=== PATIENT | male | born 1960 | race Caucasian/White ===

== ENCOUNTER 2024-08-19 22:49 | Observation (INO) | payer OTHER ==
--- NOTE | 2024-08-19 23:21 | XRAY ---
CLINICAL HISTORY: stroke COMPARISON: None. TECHNIQUE: Axial noncontrast CT scan of the brain was performed from the skull base to the high parietal region. One of the following dose reduction techniques were utilized for this exam: Automated exposure control, adjustment of the mA and/or kV according to patient size, use of iterative reconstruction. FINDINGS: There are tiny ill-defined iso-to hypodense areas noted in the subcortical and periventricular white matter bilaterally, suggestive of microvascular ischemic changes. The ventricular system, cortical sulci and basal cisterns are prominent consistent with senile changes. The visualized brain parenchyma shows normal appearance. Solis-white matter differentiation is maintained. No midline shifts or deformity. No intracerebral or extra axial hematoma. Normal CT appearance of the posterior fossa structures namely the cerebellar hemispheres, brainstem and cerebellar peduncles. The cerebello-pontine angles are clear. The osseous structures in the skull base are unremarkable. Right-sided nasal septal deviation. The scanned paranasal sinuses are clear. Bilateral mastoid air cells appear unremarkable. IMPRESSION: 1. No established acute infarction seen at present study. Early changes of stroke may not be detected on a CT scan. If strong clinical suspicion of stroke then suggest MRI with diffusion-weighted imaging. 2. Mild chronic microvascular ischemic changes and cortical atrophy, age-appropriate. The report was ready at 10:11 PM VP PACK[employer], 08/19/2024 and the call was completed at 10:13 PM VP P[employer]AGING 08/19/2024, at and Sadie (Nurse) was informed regarding the negative stroke results. Electronically Signed by: Mary Mott MD. (08/19/2024 23:18:20 EDT)
--- NOTE | 2024-08-19 23:26 | ERPHSYRPT ---
- History of Present Illness Time Seen by Provider: 08/19/24 22:55 Source: patient Exam Limitations: no limitations Patient Subjective Stated Complaint: c/o falls and altered mental status Triage Nursing Assessment: Patient brought into ED by ambulance with c/o falls and altered mental status. patient was found on floor in his home at 2130 by komal joi. fall was unwitnessed. patient states he doesn't remember falling. family told EMS that he hasn't been acting like himself the past few days and that he has fallen multiple times. Patient is a diabetic, blood sugar was 185 per our glucometer, patient was able to stand and pivot with an assist of 1, patient is alert and oriented to place and name, skin w/n/d, clubbing of fingers present, cap refil 4 seconds, doesn't oxygen at home, patient doesn't appear to be in any distress at this time. Physician History: Patient is a 63-year-old male history of diabetes, high blood pressure hypertension presents to our ED via EMS for evaluation. Per EMS report patient is altered. Family reports that his behavior is not normal. Patient has been falling more frequently as well. Patient denies pain. No chest pain or shortness of breath. No nausea vomiting or diaphoresis. Symptoms are constant. Symptoms are moderate in intensity. No specific worsening or improving factors. Patient voices no other complaints or concerns at this time. Portions of this note were created with voice recognition technology. There may be grammatical, spelling, punctuation or sound alike errors Timing/Duration: today Severity: moderate Modifying Factors: Improves With: nothing Associated Symptoms: denies symptoms Allergies/Adverse Reactions: No Known Drug Allergies Allergy (Verified 08/19/24 23:24) Home Medications: Atorvastatin Calcium 40 mg PO DAILY 08/19/24 [History] Baclofen 10 mg [Lioresal 10 mg] 10 mg PO TID 08/19/24 [History] Dapagliflozin Propanediol [Farxiga] 10 mg PO DAILY 08/19/24 [History] Doxycycline Monohydrate 100 mg PO BID 08/19/24 [History] Insulin Glargine,Hum.rec.anlog [Lantus] 25 units SQ DAILY 08/19/24 [History] Lisinopril/Hydrochlorothiazide [Zestoretic 20-25 mg Tablet] 1 tab PO DAILY 08/19/24 [History] Metformin HCl [Metformin ER Osmotic] 1,000 mg PO BID 08/19/24 [History] Travel Risk - International Travel Have you traveled outside of the country in past 3 weeks: No - Emerging Infectious Disease Are you exhibiting symptoms associated with any current EIDs: No - Review of Systems Constitutional: No Symptoms, No Fever, No Chills Eyes: No Symptoms Ears, Nose, & Throat: No Symptoms Respiratory: No Symptoms, No Cough, No Dyspnea Cardiac: No Symptoms, No Chest Pain, No Edema, No Syncope Abdominal/Gastrointestinal: No Symptoms, No Abdominal Pain, No Nausea, No Vomiting, No Diarrhea Genitourinary Symptoms: No Symptoms, No Dysuria Musculoskeletal: No Symptoms, No Back Pain, No Neck Pain Skin: No Symptoms, No Rash Neurological: No Symptoms, No Dizziness, No Focal Weakness, No Sensory Changes Psychological: No Symptoms Endocrine: No Symptoms Hematologic/Lymphatic: No Symptoms Immunological/Allergic: No Symptoms All Other Systems: Reviewed and Negative - Past Medical History Pertinent Past Medical History: (poor historian) - Past Surgical History Past Surgical History: No (unknown) - Social History Smoking Status: Current every day smoker Exposure to second hand smoke: No Drug Use: none - Social Determinants of Health Will the patient participate in the screening: Declined to provide - Nursing Vital Signs Nursing Vital Signs: Initial Vital Signs Temperature 96.5 F 08/19/24 22:53 Pulse Rate 71 08/19/24 22:53 Respiratory Rate 17 08/19/24 22:53 Blood Pressure 107/81 08/19/24 22:53 O2 Sat by Pulse Oximetry 96 08/19/24 22:53 Pain Scale Pain Intensity 0 - Physical Exam General Appearance: no apparent distress, alert Eye Exam: PERRL/EOMI, eyes nml inspection Ears, Nose, Throat Exam: normal ENT inspection, TMs normal, pharynx normal, moist mucous membranes Neck Exam: normal inspection, non-tender, supple, full range of motion Respiratory Exam: normal breath sounds, lungs clear, No respiratory distress Cardiovascular Exam: regular rate/rhythm, normal heart sounds, normal peripheral pulses Gastrointestinal/Abdomen Exam: soft, normal bowel sounds, No tenderness, No mass Back Exam: normal inspection, normal range of motion, No CVA tenderness, No vertebral tenderness Extremity Exam: normal inspection, normal range of motion, pelvis stable Neurologic Exam: alert, cooperative, normal mood/affect, sensation nml, confusion, other (Ataxic gait pattern), No motor deficits Skin Exam: normal color, warm, dry, No rash Lymphatic Exam: No adenopathy SpO2 Interpretation: normal SpO2: 96 O2 Delivery: Room Air - Course Nursing assessment & vital signs reviewed: Yes EKG Interpreted by Me: RATE (71), Sinus Rhythm, NORMAL AXIS, prolonged QT interval, NORMAL QRS, Other (Diffuse T wave abnormality/ischemia) - CT Exams Head CT Interpretation: Tele-radiologist Report (No acute intracranial pathology) Ordered Tests: Active Orders 24 hr Category Date Time Status Senior Health Educator STAT Care 08/19/24 23:20 Active EKG-ER Only STAT Care 08/19/24 23:19 Active IV Insertion STAT Care 08/19/24 23:19 Active Pulse Oximetry (ED) STAT Care 08/19/24 23:19 Active CHEST 1 VIEW (PORTABLE) Stat Exams 08/19/24 23:20 Taken HEAD WITHOUT CONTRAST [CT] Stat Exams 08/19/24 22:50 Completed CBC W DIFF Stat Lab 08/19/24 23:35 Completed CMP Stat Lab 08/19/24 23:35 Completed CULTURE,URINE Stat Lab 08/20/24 02:19 Received Lactic Acid Stat Lab 08/19/24 23:30 Completed MAGNESIUM Stat Lab 08/19/24 23:35 Completed NT PRO BNPII Stat Lab 08/19/24 23:00 Completed TROPONIN Q4H Lab 08/19/24 23:35 Completed TROPONIN Q4H Lab 08/20/24 02:14 Completed TROPONIN Q4H Lab 08/20/24 07:30 Ordered TSH [TSH, 3RD Generation] Stat Lab 08/19/24 23:35 Completed UA W/RFX UR CULTURE Stat Lab 08/20/24 02:19 Completed Urine Triage Profile Stat Lab 08/20/24 02:19 Completed Transfer Order Routine Transfer 08/20/24 Ordered Medication Summary Discontinued Medications Generic Name Dose Route Start Last Admin Trade Name Freq PRN Reason Stop Dose Admin Aspirin 324 mg 08/20/24 01:02 08/20/24 01:07 Aspirin 81 Mg Tab.Chew PO 08/20/24 01:03 324 mg STAT ONE Administration Aspirin Confirm 08/20/24 01:06 Aspirin 81 Mg Tab.Chew Administered 08/20/24 01:07 Dose 324 mg .ROUTE .STK-MED ONE Sodium Chloride 1,000 mls @ 999 mls/hr 08/20/24 00:30 08/20/24 01:32 Sodium Chloride 0.9% 1000 Ml IV 08/20/24 01:30 Infused .Q1H1M STA Infusion Sodium Chloride Confirm 08/20/24 00:30 Sodium Chloride 0.9% 1000 Ml Administered 08/20/24 00:31 Dose 1,000 mls @ ud .ROUTE .STK-MED ONE Lab/Rad Data: Laboratory Result Diagrams 08/19/24 23:35 08/19/24 23:35 Laboratory Results 08/20/24 08/20/24 08/20/24 Range/Units 02:19 02:19 02:14 WBC (4.23-9.07) x10^3/uL RBC (4.63-6.08) x10^6/uL Hgb (13.7-17.5) g/dL Hct (40.1-51.0) % MCV (79.0-92.2) fL MCH (25.7-32.2) pg MCHC (32.3-36.5) g/dL RDW (11.6-14.4) % Plt Count (163-337) x10^3/uL MPV (9.4-12.4) fL Gran % (34.0-67.9) % Immature Gran % (Auto) (0.001-0.429) % Nucleat RBC Rel Count (0.00-0.2) % Eos # (Auto) (0.04-0.54) x10^3/uL Immature Gran # (Auto) (0.001-0.031) x10^3u/L Absolute Lymphs (auto) (1.32-3.57) x10^3/uL Absolute Monos (auto) (0.30-0.82) x10^3/uL Absolute Nucleated RBC (0.00-0.012) x10^3u/L Lymphocytes % (21.8-53.1) % Monocytes % (5.3-12.2) % Eosinophils % (0.8-7.0) % Basophils % (0.2-1.2) % Absolute Granulocytes (1.78-5.38) x10^3/uL Basophils # (0.01-0.08) x10^3/uL Sodium (135-145) mmol/L Potassium (3.5-5.1) mmol/L Chloride (98-107) mmol/L Carbon Dioxide (22-30) mmol/L Anion Gap (5-15) MEQ/L BUN (9-20) mg/dL Creatinine (0.66-1.25) mg/dL Estimated GFR ML/MIN Glucose (74-106) mg/dL Lactic Acid (0.4-2.0) Calcium (8.4-10.2) mg/dL Magnesium (1.6-2.3) mg/dL Total Bilirubin (0.2-1.3) mg/dL AST (17-59) U/L ALT (0-50) U/L Alkaline Phosphatase (38-126) U/L Ammonia (9-30) umol/L Troponin I < 0.012 (0.000-0.033) ng/mL NT-Pro-B Natriuret Pep (<300) pg/mL Serum Total Protein (6.3-8.2) g/dL Albumin (3.5-5.0) g/dL TSH 3rd Generation (0.470-4.680) mIU/L Urine Color Yellow (Yellow) Urine Appearance Clear (Clear) Urine pH 5.0 (4.6-8.0) Ur Specific [place] 1.025 (1.005-1.030) Urine Protein 30 (Negative) Urine Glucose (UA) >=1000 A (Negative) mg/dL Urine Ketones Trace A (Negative) Urine Blood Trace (Negative) Urine Nitrite Negative (Negative) Urine Bilirubin Negative (Negative) Urine Urobilinogen 1.0 A (0.2) mg/dL Ur Leukocyte Esterase Negative (Negative) U Hyaline Cast (Auto) 3-5 A (0-2) /LPF Urine Microscopic RBC 3-5 (0-5) /HPF Urine Microscopic WBC 0-2 (0-5) /HPF Ur Epithelial Cells None Seen (None Seen) /HPF Urine Bacteria None Seen (None Seen) /HPF Urine Culture Reflexed YES (NO) Urine Opiates Level NEGATIVE (NEGATIVE) Ur Methadone NEGATIVE (NEGATIVE) Urine Barbiturates NEGATIVE (NEGATIVE) Ur Phencyclidine (PCP) NEGATIVE (NEGATIVE) Urine Amphetamine NEGATIVE (NEGATIVE) U Benzodiazepine Level NEGATIVE (NEGATIVE) Urine Cocaine NEGATIVE (NEGATIVE) Urine Marijuana (THC) NEGATIVE (NEGATIVE) 08/19/24 08/19/24 08/19/24 Range/Units 23:35 23:35 23:35 WBC (4.23-9.07) x10^3/uL RBC (4.63-6.08) x10^6/uL Hgb (13.7-17.5) g/dL Hct (40.1-51.0) % MCV (79.0-92.2) fL MCH (25.7-32.2) pg MCHC (32.3-36.5) g/dL RDW (11.6-14.4) % Plt Count (163-337) x10^3/uL MPV (9.4-12.4) fL Gran % (34.0-67.9) % Immature Gran % (Auto) (0.001-0.429) % Nucleat RBC Rel Count (0.00-0.2) % Eos # (Auto) (0.04-0.54) x10^3/uL Immature Gran # (Auto) (0.001-0.031) x10^3u/L Absolute Lymphs (auto) (1.32-3.57) x10^3/uL Absolute Monos (auto) (0.30-0.82) x10^3/uL Absolute Nucleated RBC (0.00-0.012) x10^3u/L Lymphocytes % (21.8-53.1) % Monocytes % (5.3-12.2) % Eosinophils % (0.8-7.0) % Basophils % (0.2-1.2) % Absolute Granulocytes (1.78-5.38) x10^3/uL Basophils # (0.01-0.08) x10^3/uL Sodium (135-145) mmol/L Potassium (3.5-5.1) mmol/L Chloride (98-107) mmol/L Carbon Dioxide (22-30) mmol/L Anion Gap (5-15) MEQ/L BUN (9-20) mg/dL Creatinine (0.66-1.25) mg/dL Estimated GFR ML/MIN Glucose (74-106) mg/dL Lactic Acid (0.4-2.0) Calcium (8.4-10.2) mg/dL Magnesium (1.6-2.3) mg/dL Total Bilirubin (0.2-1.3) mg/dL AST (17-59) U/L ALT (0-50) U/L Alkaline Phosphatase (38-126) U/L Ammonia < 9 L (9-30) umol/L Troponin I < 0.012 (0.000-0.033) ng/mL NT-Pro-B Natriuret Pep (<300) pg/mL Serum Total Protein (6.3-8.2) g/dL Albumin (3.5-5.0) g/dL TSH 3rd Generation 1.847 (0.470-4.680) mIU/L Urine Color (Yellow) Urine Appearance (Clear) Urine pH (4.6-8.0) Ur Specific [place] (1.005-1.030) Urine Protein (Negative) Urine Glucose (UA) (Negative) mg/dL Urine Ketones (Negative) Urine Blood (Negative) Urine Nitrite (Negative) Urine Bilirubin (Negative) Urine Urobilinogen (0.2) mg/dL Ur Leukocyte Esterase (Negative) U Hyaline Cast (Auto) (0-2) /LPF Urine Microscopic RBC (0-5) /HPF Urine Microscopic WBC (0-5) /HPF Ur Epithelial Cells (None Seen) /HPF Urine Bacteria (None Seen) /HPF Urine Culture Reflexed (NO) Urine Opiates Level (NEGATIVE) Ur Methadone (NEGATIVE) Urine Barbiturates (NEGATIVE) Ur Phencyclidine (PCP) (NEGATIVE) Urine Amphetamine (NEGATIVE) U Benzodiazepine Level (NEGATIVE) Urine Cocaine (NEGATIVE) Urine Marijuana (THC) (NEGATIVE) 08/19/24 08/19/24 08/19/24 Range/Units 23:35 23:35 23:30 WBC 13.5 H (4.23-9.07) x10^3/uL RBC 5.73 (4.63-6.08) x10^6/uL Hgb 16.7 (13.7-17.5) g/dL Hct 50.8 (40.1-51.0) % MCV 88.7 (79.0-92.2) fL MCH 29.1 (25.7-32.2) pg MCHC 32.9 (32.3-36.5) g/dL RDW 12.7 (11.6-14.4) % Plt Count 274 (163-337) x10^3/uL MPV 10.8 (9.4-12.4) fL Gran % 71.1 H (34.0-67.9) % Immature Gran % (Auto) 0.4 (0.001-0.429) % Nucleat RBC Rel Count 0.0 (0.00-0.2) % Eos # (Auto) 0.04 (0.04-0.54) x10^3/uL Immature Gran # (Auto) 0.06 H (0.001-0.031) x10^3u/L Absolute Lymphs (auto) 2.64 (1.32-3.57) x10^3/uL Absolute Monos (auto) 1.12 H (0.30-0.82) x10^3/uL Absolute Nucleated RBC 0.00 (0.00-0.012) x10^3u/L Lymphocytes % 19.6 L (21.8-53.1) % Monocytes % 8.3 (5.3-12.2) % Eosinophils % 0.3 L (0.8-7.0) % Basophils % 0.3 (0.2-1.2) % Absolute Granulocytes 9.59 H (1.78-5.38) x10^3/uL Basophils # 0.04 (0.01-0.08) x10^3/uL Sodium 136 (135-145) mmol/L Potassium 3.7 (3.5-5.1) mmol/L Chloride 93 L (98-107) mmol/L Carbon Dioxide 28 (22-30) mmol/L Anion Gap 18.6 H (5-15) MEQ/L BUN 69 H (9-20) mg/dL Creatinine 1.40 H (0.66-1.25) mg/dL Estimated GFR 56.5 ML/MIN Glucose 182 H (74-106) mg/dL Lactic Acid 1.5 (0.4-2.0) Calcium 8.8 (8.4-10.2) mg/dL Magnesium 3.2 H (1.6-2.3) mg/dL Total Bilirubin 0.70 (0.2-1.3) mg/dL AST 23 (17-59) U/L ALT 16 (0-50) U/L Alkaline Phosphatase 144 H (38-126) U/L Ammonia (9-30) umol/L Troponin I (0.000-0.033) ng/mL NT-Pro-B Natriuret Pep (<300) pg/mL Serum Total Protein 6.7 (6.3-8.2) g/dL Albumin 3.9 (3.5-5.0) g/dL TSH 3rd Generation (0.470-4.680) mIU/L Urine Color (Yellow) Urine Appearance (Clear) Urine pH (4.6-8.0) Ur Specific [place] (1.005-1.030) Urine Protein (Negative) Urine Glucose (UA) (Negative) mg/dL Urine Ketones (Negative) Urine Blood (Negative) Urine Nitrite (Negative) Urine Bilirubin (Negative) Urine Urobilinogen (0.2) mg/dL Ur Leukocyte Esterase (Negative) U Hyaline Cast (Auto) (0-2) /LPF Urine Microscopic RBC (0-5) /HPF Urine Microscopic WBC (0-5) /HPF Ur Epithelial Cells (None Seen) /HPF Urine Bacteria (None Seen) /HPF Urine Culture Reflexed (NO) Urine Opiates Level (NEGATIVE) Ur Methadone (NEGATIVE) Urine Barbiturates (NEGATIVE) Ur Phencyclidine (PCP) (NEGATIVE) Urine Amphetamine (NEGATIVE) U Benzodiazepine Level (NEGATIVE) Urine Cocaine (NEGATIVE) Urine Marijuana (THC) (NEGATIVE) 08/19/24 Range/Units 23:00 WBC (4.23-9.07) x10^3/uL RBC (4.63-6.08) x10^6/uL Hgb (13.7-17.5) g/dL Hct (40.1-51.0) % MCV (79.0-92.2) fL MCH (25.7-32.2) pg MCHC (32.3-36.5) g/dL RDW (11.6-14.4) % Plt Count (163-337) x10^3/uL MPV (9.4-12.4) fL Gran % (34.0-67.9) % Immature Gran % (Auto) (0.001-0.429) % Nucleat RBC Rel Count (0.00-0.2) % Eos # (Auto) (0.04-0.54) x10^3/uL Immature Gran # (Auto) (0.001-0.031) x10^3u/L Absolute Lymphs (auto) (1.32-3.57) x10^3/uL Absolute Monos (auto) (0.30-0.82) x10^3/uL Absolute Nucleated RBC (0.00-0.012) x10^3u/L Lymphocytes % (21.8-53.1) % Monocytes % (5.3-12.2) % Eosinophils % (0.8-7.0) % Basophils % (0.2-1.2) % Absolute Granulocytes (1.78-5.38) x10^3/uL Basophils # (0.01-0.08) x10^3/uL Sodium (135-145) mmol/L Potassium (3.5-5.1) mmol/L Chloride (98-107) mmol/L Carbon Dioxide (22-30) mmol/L Anion Gap (5-15) MEQ/L BUN (9-20) mg/dL Creatinine (0.66-1.25) mg/dL Estimated GFR ML/MIN Glucose (74-106) mg/dL Lactic Acid (0.4-2.0) Calcium (8.4-10.2) mg/dL Magnesium (1.6-2.3) mg/dL Total Bilirubin (0.2-1.3) mg/dL AST (17-59) U/L ALT (0-50) U/L Alkaline Phosphatase (38-126) U/L Ammonia (9-30) umol/L Troponin I (0.000-0.033) ng/mL NT-Pro-B Natriuret Pep 31.5 (<300) pg/mL Serum Total Protein (6.3-8.2) g/dL Albumin (3.5-5.0) g/dL TSH 3rd Generation (0.470-4.680) mIU/L Urine Color (Yellow) Urine Appearance (Clear) Urine pH (4.6-8.0) Ur Specific [place] (1.005-1.030) Urine Protein (Negative) Urine Glucose (UA) (Negative) mg/dL Urine Ketones (Negative) Urine Blood (Negative) Urine Nitrite (Negative) Urine Bilirubin (Negative) Urine Urobilinogen (0.2) mg/dL Ur Leukocyte Esterase (Negative) U Hyaline Cast (Auto) (0-2) /LPF Urine Microscopic RBC (0-5) /HPF Urine Microscopic WBC (0-5) /HPF Ur Epithelial Cells (None Seen) /HPF Urine Bacteria (None Seen) /HPF Urine Culture Reflexed (NO) Urine Opiates Level (NEGATIVE) Ur Methadone (NEGATIVE) Urine Barbiturates (NEGATIVE) Ur Phencyclidine (PCP) (NEGATIVE) Urine Amphetamine (NEGATIVE) U Benzodiazepine Level (NEGATIVE) Urine Cocaine (NEGATIVE) Urine Marijuana (THC) (NEGATIVE) - Progress Progress: improved Progress Note: 08/20/24 02:45 63-year-old male diabetic presents to our ED via EMS for evaluation of falls and unusual behavior. Physical exam essentially nonremarkable. EKG shows T wave abnormalities. Laboratory workup essentially nonremarkable. CT head shows chronic ischemic changes. No acute findings. Troponin negative x 2. UA negative for UTI. Urine toxicology negative. We ambulated patient in our ED. Patient had an antalgic gait pattern. Teleneurology consulted. They advise hospitalization for MRI. Case discussed with hospitalist Dr. Jama who accepts admission to observation at 2:50 AM. Plan of care discussed with patient. He agrees to admission at [facility] for further evaluation and treatment. EKG shows T wave inversions inferior and laterally. Patient has no chest pain. Troponin negative x 2. There are no old EKGs to compare. Portions of this note were created with voice recognition technology. There may be grammatical, spelling, punctuation or sound alike errors Complexity of problem addressed is moderate acute complicated. No critical care time. Complexity of data reviewed and analyzed is extensive.. Test ordered test reviewed results analyzed and correlated clinically. Risk of complication and or risk of morbidity/mortality of patient management is high. Patient requires hospitalization for further evaluation and treatment. Vital stable. Time spent admit patient is approximately 20 minutes. Plan of care established for shared decision making. No social determinants of health present to impede follow-up. Portions of this note were created with voice recognition technology. There may be grammatical, spelling, punctuation or sound alike errors 08/20/24 02:47 08/20/24 02:59 Counseled pt/family regarding: lab results, diagnosis, rad results - Departure Departure Disposition: Observation Clinical Impression: Acute renal injury, Confusion, Dehydration, Falls, Abnormal EKG Condition: Stable Critical Care Time: No Referrals: ANNA MARIE IZAGUIRRE MD [Primary Care Provider] - Follow up/PCP as directed
[2024-08-19 23:38] LABS: Absolute Neutrophil Ct (ANC) 9.59 x10^3/uL (1.78-5.38); BASOPHIL % 0.3 % (0.2-1.2); Basophil (Absolute #) 0.04 x10^3/uL (0.01-0.08); Eosinophil % 0.3 % (0.8-7.0); Eosinophil (Absolute #) 0.04 x10^3/uL (0.04-0.54); Hematocrit 50.8 % (40.1-51.0); Hemoglobin 16.7 g/dL (13.7-17.5); IMMATURE GRAN # 0.06 x10^3u/L (0.001-0.031); IMMATURE GRAN % 0.4 % (0.001-0.429); Lymphocyte (Absolute #) 2.64 x10^3/uL (1.32-3.57); Lymphocytes % 19.6 % (21.8-53.1); Mean Cell Volume 88.7 fL (79.0-92.2); Mean Corpuscular Hemoglobin 29.1 pg (25.7-32.2); Mean Corpuscular Hgb Concent. 32.9 g/dL (32.3-36.5); Mean Platelet Volume 10.8 fL (9.4-12.4); Monocyte (Absolute #) 1.12 x10^3/uL (0.30-0.82); Monocytes % 8.3 % (5.3-12.2); Neutrophil % 71.1 % (34.0-67.9); Platelet Count 274 x10^3/uL (163-337); Red Blood Count 5.73 x10^6/uL (4.63-6.08); Red Cell Distribution Width 12.7 % (11.6-14.4); White Blood Count 13.5 x10^3/uL (4.23-9.07)
[2024-08-19 23:52] LABS: ALBUMIN 3.9 g/dL (3.5-5.0); ANION GAP 18.6 MEQ/L (5-15); BILIRUBIN,TOTAL 0.7 mg/dL (0.2-1.3); Calcium 8.8 mg/dL (8.4-10.2); Creatinine 1 1.4 mg/dL (0.66-1.25); EST GLOMERULAR FILTRATION RATE 56.5 ML/MIN; MAGNESIUM 3.2 mg/dL (1.6-2.3); Potassium 3.7 mmol/L (3.5-5.1); Total Protein 6.7 g/dL (6.3-8.2)
[2024-08-20] MEDS ORDERED: Sodium Chloride 0.9% 1000 ML 1,000 ML ONE (00:30)
[2024-08-20] MEDS: Sodium Chloride 0.9% 1000 ML 1,000 ML IV STA (00:32)
[2024-08-20] MEDS ORDERED: BABY ASPIRIN 81 MG CHEW ONE (01:06)
[2024-08-20] MEDS: BABY ASPIRIN 81 MG CHEW PO ONE (01:07)
--- NOTE | 2024-08-20 01:41 | PCM.CONS ---
History of Present Illness - Neuro Consultation ED Arrival Date & Time: 08/19/24 22:49 Providers: Attending Provider: ED Provider: VINOD GOULD Consulting Provider: CAT CURRY MD cc:: The requesting physician will be sent a copy of the consult. - History of Present Illness HPI: The patient is a 63M Review of Systems - Review of Systems Review of Systems (Narrative): Pertinent positive and negative findings as per HPI. All other systems negative. - Past Medical History Past Medical History: (poor historian) - Past Surgical History Past Surgical History: No (unknown) - Social History Smoking Status: Current every day smoker Exposure to second hand smoke: No Alcohol: Occasionally Drug Use: none - Social Determinants of Health Will the patient participate in the screening: Declined to provide Physical Exam - Vital Signs Vital Signs: Vital Signs - 24 hr 08/19/24 08/19/24 08/19/24 22:53 23:04 23:27 Temperature 96.5 F Pulse Rate 71 71 Respiratory 17 30 H Rate Blood Pressure 107/81 Blood Pressure 107/81 [left] O2 Sat by Pulse 96 95 95 Oximetry 08/19/24 08/19/24 08/20/24 23:30 23:49 00:00 Temperature Pulse Rate 72 72 70 Respiratory 28 H 22 20 Rate Blood Pressure 100/64 100/61 Blood Pressure 100/64 [left] O2 Sat by Pulse 92 L 94 L 97 Oximetry 08/20/24 08/20/24 08/20/24 00:31 00:37 01:01 Temperature Pulse Rate 85 63 60 Respiratory 12 19 15 Rate Blood Pressure 108/59 107/64 116/60 Blood Pressure [left] O2 Sat by Pulse 100 95 95 Oximetry 08/20/24 01:12 Temperature Pulse Rate Respiratory Rate Blood Pressure Blood Pressure [left] O2 Sat by Pulse 96 Oximetry Results - Labs Lab/Micro Results: Lab Results-Last 24 Hours 08/19/24 08/19/24 08/19/24 Range/Units 23:00 23:30 23:35 WBC 13.5 H (4.23-9.07) x10^3/uL RBC 5.73 (4.63-6.08) x10^6/uL Hgb 16.7 (13.7-17.5) g/dL Hct 50.8 (40.1-51.0) % MCV 88.7 (79.0-92.2) fL MCH 29.1 (25.7-32.2) pg MCHC 32.9 (32.3-36.5) g/dL RDW 12.7 (11.6-14.4) % Plt Count 274 (163-337) x10^3/uL MPV 10.8 (9.4-12.4) fL Gran % 71.1 H (34.0-67.9) % Immature Gran % (Auto) 0.4 (0.001-0.429) % Nucleat RBC Rel Count 0.0 (0.00-0.2) % Eos # (Auto) 0.04 (0.04-0.54) x10^3/uL Immature Gran # (Auto) 0.06 H (0.001-0.031) x10^3u/L Absolute Lymphs (auto) 2.64 (1.32-3.57) x10^3/uL Absolute Monos (auto) 1.12 H (0.30-0.82) x10^3/uL Absolute Nucleated RBC 0.00 (0.00-0.012) x10^3u/L Lymphocytes % 19.6 L (21.8-53.1) % Monocytes % 8.3 (5.3-12.2) % Eosinophils % 0.3 L (0.8-7.0) % Basophils % 0.3 (0.2-1.2) % Absolute Granulocytes 9.59 H (1.78-5.38) x10^3/uL Basophils # 0.04 (0.01-0.08) x10^3/uL Sodium (135-145) mmol/L Potassium (3.5-5.1) mmol/L Chloride (98-107) mmol/L Carbon Dioxide (22-30) mmol/L Anion Gap (5-15) MEQ/L BUN (9-20) mg/dL Creatinine (0.66-1.25) mg/dL Estimated GFR ML/MIN Glucose (74-106) mg/dL Lactic Acid 1.5 (0.4-2.0) Calcium (8.4-10.2) mg/dL Magnesium (1.6-2.3) mg/dL Total Bilirubin (0.2-1.3) mg/dL AST (17-59) U/L ALT (0-50) U/L Alkaline Phosphatase (38-126) U/L Ammonia (9-30) umol/L Troponin I (0.000-0.033) ng/mL NT-Pro-B Natriuret Pep 31.5 (<300) pg/mL Serum Total Protein (6.3-8.2) g/dL Albumin (3.5-5.0) g/dL TSH 3rd Generation (0.470-4.680) mIU/L 08/19/24 08/19/24 08/19/24 Range/Units 23:35 23:35 23:35 WBC (4.23-9.07) x10^3/uL RBC (4.63-6.08) x10^6/uL Hgb (13.7-17.5) g/dL Hct (40.1-51.0) % MCV (79.0-92.2) fL MCH (25.7-32.2) pg MCHC (32.3-36.5) g/dL RDW (11.6-14.4) % Plt Count (163-337) x10^3/uL MPV (9.4-12.4) fL Gran % (34.0-67.9) % Immature Gran % (Auto) (0.001-0.429) % Nucleat RBC Rel Count (0.00-0.2) % Eos # (Auto) (0.04-0.54) x10^3/uL Immature Gran # (Auto) (0.001-0.031) x10^3u/L Absolute Lymphs (auto) (1.32-3.57) x10^3/uL Absolute Monos (auto) (0.30-0.82) x10^3/uL Absolute Nucleated RBC (0.00-0.012) x10^3u/L Lymphocytes % (21.8-53.1) % Monocytes % (5.3-12.2) % Eosinophils % (0.8-7.0) % Basophils % (0.2-1.2) % Absolute Granulocytes (1.78-5.38) x10^3/uL Basophils # (0.01-0.08) x10^3/uL Sodium 136 (135-145) mmol/L Potassium 3.7 (3.5-5.1) mmol/L Chloride 93 L (98-107) mmol/L Carbon Dioxide 28 (22-30) mmol/L Anion Gap 18.6 H (5-15) MEQ/L BUN 69 H (9-20) mg/dL Creatinine 1.40 H (0.66-1.25) mg/dL Estimated GFR 56.5 ML/MIN Glucose 182 H (74-106) mg/dL Lactic Acid (0.4-2.0) Calcium 8.8 (8.4-10.2) mg/dL Magnesium 3.2 H (1.6-2.3) mg/dL Total Bilirubin 0.70 (0.2-1.3) mg/dL AST 23 (17-59) U/L ALT 16 (0-50) U/L Alkaline Phosphatase 144 H (38-126) U/L Ammonia (9-30) umol/L Troponin I < 0.012 (0.000-0.033) ng/mL NT-Pro-B Natriuret Pep (<300) pg/mL Serum Total Protein 6.7 (6.3-8.2) g/dL Albumin 3.9 (3.5-5.0) g/dL TSH 3rd Generation 1.847 (0.470-4.680) mIU/L 08/19/24 Range/Units 23:35 WBC (4.23-9.07) x10^3/uL RBC (4.63-6.08) x10^6/uL Hgb (13.7-17.5) g/dL Hct (40.1-51.0) % MCV (79.0-92.2) fL MCH (25.7-32.2) pg MCHC (32.3-36.5) g/dL RDW (11.6-14.4) % Plt Count (163-337) x10^3/uL MPV (9.4-12.4) fL Gran % (34.0-67.9) % Immature Gran % (Auto) (0.001-0.429) % Nucleat RBC Rel Count (0.00-0.2) % Eos # (Auto) (0.04-0.54) x10^3/uL Immature Gran # (Auto) (0.001-0.031) x10^3u/L Absolute Lymphs (auto) (1.32-3.57) x10^3/uL Absolute Monos (auto) (0.30-0.82) x10^3/uL Absolute Nucleated RBC (0.00-0.012) x10^3u/L Lymphocytes % (21.8-53.1) % Monocytes % (5.3-12.2) % Eosinophils % (0.8-7.0) % Basophils % (0.2-1.2) % Absolute Granulocytes (1.78-5.38) x10^3/uL Basophils # (0.01-0.08) x10^3/uL Sodium (135-145) mmol/L Potassium (3.5-5.1) mmol/L Chloride (98-107) mmol/L Carbon Dioxide (22-30) mmol/L Anion Gap (5-15) MEQ/L BUN (9-20) mg/dL Creatinine (0.66-1.25) mg/dL Estimated GFR ML/MIN Glucose (74-106) mg/dL Lactic Acid (0.4-2.0) Calcium (8.4-10.2) mg/dL Magnesium (1.6-2.3) mg/dL Total Bilirubin (0.2-1.3) mg/dL AST (17-59) U/L ALT (0-50) U/L Alkaline Phosphatase (38-126) U/L Ammonia < 9 L (9-30) umol/L Troponin I (0.000-0.033) ng/mL NT-Pro-B Natriuret Pep (<300) pg/mL Serum Total Protein (6.3-8.2) g/dL Albumin (3.5-5.0) g/dL TSH 3rd Generation (0.470-4.680) mIU/L - Radiology Orders Radiology Orders: Radiology Procedures Category Date Time Status CHEST 1 VIEW (PORTABLE) Stat Exams 08/19/24 23:20 Taken HEAD WITHOUT CONTRAST [CT] Stat Exams 08/19/24 22:50 Completed Impressions & Recommendations - ED Arrival Time ED Arrival Date & Time: ED Arrival Date and Time 08/19/24 22:49 Last known well time: - NIHSS IV Thrombolysis Standard of Care: IV thrombolysis as a standard of care in acute stroke discussed with VINOD GOULD. Risk, benefits, and options of IV thrombolytic therapy for acute ischemic stroke were discussed with the patient/family WILLIAM BARRERA. We discussed that use of IV tenecteplase is in line with national stroke guidelines. We discussed that risks of IV thrombolytic use include intracranial hemorrhage, other fatal bleeding risks, and angioedema. Alternatives of treatment, including not proceeding with thrombolytic therapy were discussed. - Recommendations Recommendations: -Neuro checks, NIHSS, vital signs monitoring as per post tenecteplase protocol -Repeat non contrast head CT or noncontrast MRI brain 24 hours after IV thrombolyltic administration. -Obtain STAT non contrast head CT if there are new neurological deficits, worsening of current deficits, or with complaint of severe headache. Notify Neurology [place] of changes in neurological exam. -Nicardipine gtt as needed to maintain BP< 180/105 x 24hr post tenecteplase administration. -Monitor for angioedema -SCD's for DVT prophylaxis. Work up: -Basic labs (CBC, BMP, TSH+T4) if not done already. -INR,PTT if not done already -Fasting Lipid Panel and Hgb A1c -Transthroacic echocardiogram [with bubble study] -EKG + Telemetry- monitor for A-FIB Secondary Stroke Prevention -Hold off on antiplatelet therapy x 24 hr post IV thrombolytic therapy Decision to initiate antiplatelet therapy, or anticoagulation if needed, will be based on repeat imaging at 24 hour post thrombolytic administration. -If not medical contraindication, start high intensity statin. Eg. 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 High intensity statin recommended. Moderate intensity statin in patients > 75 years. -Smoking Alcohol Use Drug use cessation counseling Stroke Rehabilitation: -Physical therapy, occupational therapy, speech therapy consults -Social work and case management consults for help with discharge needs. Impression and recommendation were discussed with Dr. VINOD GOULD Thank you for allowing us to participate in this patient's care. Please call [facility] with questions, concerns, or change in patient's neurological status. This consult was performed via secure telemedicine audio/visual platform with [ ] RN assisting at bedside. Patient identity verified and consent obtained. TIQ recieved at [ ] Neuro Cart Time: Delays in Patient Encounter: Assessment & Plan - Encounter Encounter: "The entirety of this encounter was performed via Telemedicine using audio and visual "
--- NOTE | 2024-08-20 01:44 | PCM.NOTE ---
Date and Time: 08/20/24 0143 Objective Exam - Vital Signs Vital Signs: Vital Signs - 24 hr 08/19/24 08/19/24 08/19/24 22:53 23:04 23:27 Temperature 96.5 F Pulse Rate 71 71 Respiratory 17 30 H Rate Blood Pressure 107/81 Blood Pressure 107/81 [left] O2 Sat by Pulse 96 95 95 Oximetry 08/19/24 08/19/24 08/20/24 23:30 23:49 00:00 Temperature Pulse Rate 72 72 70 Respiratory 28 H 22 20 Rate Blood Pressure 100/64 100/61 Blood Pressure 100/64 [left] O2 Sat by Pulse 92 L 94 L 97 Oximetry 08/20/24 08/20/24 08/20/24 00:31 00:37 01:01 Temperature Pulse Rate 85 63 60 Respiratory 12 19 15 Rate Blood Pressure 108/59 107/64 116/60 Blood Pressure [left] O2 Sat by Pulse 100 95 95 Oximetry 08/20/24 01:12 Temperature Pulse Rate Respiratory Rate Blood Pressure Blood Pressure [left] O2 Sat by Pulse 96 Oximetry Objective Data - Labs Lab/Micro Results: Lab Results-Last 24 Hours 08/19/24 08/19/24 08/19/24 Range/Units 23:00 23:30 23:35 WBC 13.5 H (4.23-9.07) x10^3/uL RBC 5.73 (4.63-6.08) x10^6/uL Hgb 16.7 (13.7-17.5) g/dL Hct 50.8 (40.1-51.0) % MCV 88.7 (79.0-92.2) fL MCH 29.1 (25.7-32.2) pg MCHC 32.9 (32.3-36.5) g/dL RDW 12.7 (11.6-14.4) % Plt Count 274 (163-337) x10^3/uL MPV 10.8 (9.4-12.4) fL Gran % 71.1 H (34.0-67.9) % Immature Gran % (Auto) 0.4 (0.001-0.429) % Nucleat RBC Rel Count 0.0 (0.00-0.2) % Eos # (Auto) 0.04 (0.04-0.54) x10^3/uL Immature Gran # (Auto) 0.06 H (0.001-0.031) x10^3u/L Absolute Lymphs (auto) 2.64 (1.32-3.57) x10^3/uL Absolute Monos (auto) 1.12 H (0.30-0.82) x10^3/uL Absolute Nucleated RBC 0.00 (0.00-0.012) x10^3u/L Lymphocytes % 19.6 L (21.8-53.1) % Monocytes % 8.3 (5.3-12.2) % Eosinophils % 0.3 L (0.8-7.0) % Basophils % 0.3 (0.2-1.2) % Absolute Granulocytes 9.59 H (1.78-5.38) x10^3/uL Basophils # 0.04 (0.01-0.08) x10^3/uL Sodium (135-145) mmol/L Potassium (3.5-5.1) mmol/L Chloride (98-107) mmol/L Carbon Dioxide (22-30) mmol/L Anion Gap (5-15) MEQ/L BUN (9-20) mg/dL Creatinine (0.66-1.25) mg/dL Estimated GFR ML/MIN Glucose (74-106) mg/dL Lactic Acid 1.5 (0.4-2.0) Calcium (8.4-10.2) mg/dL Magnesium (1.6-2.3) mg/dL Total Bilirubin (0.2-1.3) mg/dL AST (17-59) U/L ALT (0-50) U/L Alkaline Phosphatase (38-126) U/L Ammonia (9-30) umol/L Troponin I (0.000-0.033) ng/mL NT-Pro-B Natriuret Pep 31.5 (<300) pg/mL Serum Total Protein (6.3-8.2) g/dL Albumin (3.5-5.0) g/dL TSH 3rd Generation (0.470-4.680) mIU/L 08/19/24 08/19/24 08/19/24 Range/Units 23:35 23:35 23:35 WBC (4.23-9.07) x10^3/uL RBC (4.63-6.08) x10^6/uL Hgb (13.7-17.5) g/dL Hct (40.1-51.0) % MCV (79.0-92.2) fL MCH (25.7-32.2) pg MCHC (32.3-36.5) g/dL RDW (11.6-14.4) % Plt Count (163-337) x10^3/uL MPV (9.4-12.4) fL Gran % (34.0-67.9) % Immature Gran % (Auto) (0.001-0.429) % Nucleat RBC Rel Count (0.00-0.2) % Eos # (Auto) (0.04-0.54) x10^3/uL Immature Gran # (Auto) (0.001-0.031) x10^3u/L Absolute Lymphs (auto) (1.32-3.57) x10^3/uL Absolute Monos (auto) (0.30-0.82) x10^3/uL Absolute Nucleated RBC (0.00-0.012) x10^3u/L Lymphocytes % (21.8-53.1) % Monocytes % (5.3-12.2) % Eosinophils % (0.8-7.0) % Basophils % (0.2-1.2) % Absolute Granulocytes (1.78-5.38) x10^3/uL Basophils # (0.01-0.08) x10^3/uL Sodium 136 (135-145) mmol/L Potassium 3.7 (3.5-5.1) mmol/L Chloride 93 L (98-107) mmol/L Carbon Dioxide 28 (22-30) mmol/L Anion Gap 18.6 H (5-15) MEQ/L BUN 69 H (9-20) mg/dL Creatinine 1.40 H (0.66-1.25) mg/dL Estimated GFR 56.5 ML/MIN Glucose 182 H (74-106) mg/dL Lactic Acid (0.4-2.0) Calcium 8.8 (8.4-10.2) mg/dL Magnesium 3.2 H (1.6-2.3) mg/dL Total Bilirubin 0.70 (0.2-1.3) mg/dL AST 23 (17-59) U/L ALT 16 (0-50) U/L Alkaline Phosphatase 144 H (38-126) U/L Ammonia (9-30) umol/L Troponin I < 0.012 (0.000-0.033) ng/mL NT-Pro-B Natriuret Pep (<300) pg/mL Serum Total Protein 6.7 (6.3-8.2) g/dL Albumin 3.9 (3.5-5.0) g/dL TSH 3rd Generation 1.847 (0.470-4.680) mIU/L 08/19/24 Range/Units 23:35 WBC (4.23-9.07) x10^3/uL RBC (4.63-6.08) x10^6/uL Hgb (13.7-17.5) g/dL Hct (40.1-51.0) % MCV (79.0-92.2) fL MCH (25.7-32.2) pg MCHC (32.3-36.5) g/dL RDW (11.6-14.4) % Plt Count (163-337) x10^3/uL MPV (9.4-12.4) fL Gran % (34.0-67.9) % Immature Gran % (Auto) (0.001-0.429) % Nucleat RBC Rel Count (0.00-0.2) % Eos # (Auto) (0.04-0.54) x10^3/uL Immature Gran # (Auto) (0.001-0.031) x10^3u/L Absolute Lymphs (auto) (1.32-3.57) x10^3/uL Absolute Monos (auto) (0.30-0.82) x10^3/uL Absolute Nucleated RBC (0.00-0.012) x10^3u/L Lymphocytes % (21.8-53.1) % Monocytes % (5.3-12.2) % Eosinophils % (0.8-7.0) % Basophils % (0.2-1.2) % Absolute Granulocytes (1.78-5.38) x10^3/uL Basophils # (0.01-0.08) x10^3/uL Sodium (135-145) mmol/L Potassium (3.5-5.1) mmol/L Chloride (98-107) mmol/L Carbon Dioxide (22-30) mmol/L Anion Gap (5-15) MEQ/L BUN (9-20) mg/dL Creatinine (0.66-1.25) mg/dL Estimated GFR ML/MIN Glucose (74-106) mg/dL Lactic Acid (0.4-2.0) Calcium (8.4-10.2) mg/dL Magnesium (1.6-2.3) mg/dL Total Bilirubin (0.2-1.3) mg/dL AST (17-59) U/L ALT (0-50) U/L Alkaline Phosphatase (38-126) U/L Ammonia < 9 L (9-30) umol/L Troponin I (0.000-0.033) ng/mL NT-Pro-B Natriuret Pep (<300) pg/mL Serum Total Protein (6.3-8.2) g/dL Albumin (3.5-5.0) g/dL TSH 3rd Generation (0.470-4.680) mIU/L - Radiology Orders Radiology Orders: Radiology Procedures Category Date Time Status CHEST 1 VIEW (PORTABLE) Stat Exams 08/19/24 23:20 Taken HEAD WITHOUT CONTRAST [CT] Stat Exams 08/19/24 22:50 Completed Assessment & Plan - Encounter Encounter: "The entirety of this encounter was performed via Telemedicine using audio and visual " Physician Signature This document was electronically signed by: Nathan Junior MD Consult Cover Page FROM: [employer], Call Back Number: [phone] SUBJECT: Consult Recommendations Date and Time of Report: 08/20/2024 01:33 AM ET Items Contained in this Document: Neurology Consult Note Consult Information Member Facility: [facility] Facility Consult ID: [id number] Facility Time Zone: ET Date and Time of Request: 08-20-2024 12:36 AM ET Requesting Clinician: DR. 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 She was not present during the examination, but reported to EMS that she heard him fall at approximately 21:30 EDT and found him on the floor. He appeared somewhat confused prompting the call to EMS. Upon arrival in the ER he was noted to be confused and unable to ambulate without assistance. At the time of the current examination he was more responsive, but was unable to explain specifically why he was in the ER. He did report that he had been without his medications for several weeks, but resumed taking them 1-2 weeks ago. Number of Documented HPI Elements: 4+ Medical History Medical History: Back pain, Coronary Artery Disease, Diabetes Mellitus, Hyperlipidemia, Hypertension Other Medical History: PVD S/P RLE stenting Other Past Procedures: Right leg stent Pertinent Family History: Unknown Allergies Other Allergies: Keflex Medications Anti-Coagulants: None Anti-Platelets: None Other Medications: Baclofen, Doxycycline, Lisinopril-HCTZ, Atorvastatin, Farxiga, Lantus Social History Alcohol Use: Current Drug Use: None Tobacco Use: Current Other Social History : Drinks alcohol occasionally on a social basis, smokes cigarettes 1/2 ppd Vital Signs Temperature: Afebrile Blood Pressure (mmHg): 107/64 Heart Rate (bpm): 68 Respiration Rate (/min): 22 O2 Sat (%): 100 POC Glucose(mg/dL): 182 Oxygen Delivery Method: Room Air EKG Rhythm: Sinus Rhythm Date and Time: 08/20/2024 01:15:13 AM ET POC Glucose(mg/dL): 182 Review Of Systems General, Constitutional: Pertinent Positives/Negatives General, Constitutional Comments: Reports "not feeling well" for several weeks, but unable to describe his symptoms further Neurological: Pertinent Positives/Negatives Neurological comments: No known prior history of TIA or stroke Cardiovascular: Pertinent Positives/Negatives Cardiovascular Comments: CAD S/P ND in the past. PVD S/P stenting in the right leg Ears, Nose, Throat: Pertinent Positives/Negatives Ears, Nose, Throat Comments: Took Doxycycline for suspected sinus infection within the past 1-2 weeks Respiratory: Pertinent Positives/Negatives Respiratory comments: No recent cough, shortness of breath Genitourinary: Pertinent Positives/Negatives Genitourinary comments: No dysuria or frequency reported Musculoskeletal: Pertinent Positives/Negatives Musculoskeletal comments: Chronic lower back pain Endocrine: Pertinent Positives/Negatives Endocrine comments: Diabetes NIH Stroke Scale NIH Stroke Scale Score: 2 1. Level of Consciousness: 0 : alert; keenly responsive. 1a. LOC Questions: 2 : Answers neither question correctly. 1b. LOC Commands: 0 : Performs both tasks correctly. 2. Best Gaze: 0 : Normal. 3. Visual: 0 : No visual loss. 4. Facial Palsy: 0 : Normal symmetrical movements. 5a. Motor Left Arm: 0 : No drift; limb holds 90 (or 45) degrees for full 10 seconds. 5b. Motor Right Arm : 0 : No drift; limb holds 90 (or 45) degrees for full 10 seconds. 6a. Motor Left Le : No drift; leg holds 30-degree position for full 5 seconds. 6b. Motor Right Le : No drift; leg holds 30-degree position for full 5 seconds. 7. Limb Ataxia: 0 : Absent. 8. Sensory: 0 : Normal; no sensory loss. 9. Best Language: 0 : No aphasia; normal. 10. Dysarthria: 0 : Normal. 11. Extinction and inattention (formerly Neglect) : 0 : No abnormality. NIHSS Entry Time: 08/20/2024 01:16:46 AM ET Exam Exam: NEUROLOGICAL EXAMINATION MENTAL STATUS: He was awake and alert. He knew that he was in a hospitla, but c ould not explain why. He was unable to name the month or the day of the week. Speech was clear. Language was fluent. CRANIAL NERVES: Visual hayes were full. Extraocular movements were full and con jugate. There was no ptosis. Facial sensation was intact to light touch. There was no facial asymmetry. MOTOR: There was no pronator drift. Fine motor function was intact in both hands. There was no fixed arm roll. He was able to elevate each leg off the bed for 5 seconds. SENSORY: Sensation was intact to light touch throughout COORDINATION: There was no nystagmus or dysmetria Clinician assisting with exam: RN assisting Labs and Imaging Labs available?: Yes Blood Glucose (mg/dL): 182 WBC (mcL): 13.5 HGB (g/dL): 16.7 HCT (%): 50.8 PLT (mcL): 274 Na (mEq/L): 136 K (mEq/L): 3.7 BUN (mg/dL): 65 Cr (mg/dL): 1.4 Other Labs: Magnesium=3.2 Ammonia= <[address] Findings : CT: Cortical atrophy, microvascular white matter changes, scattered subcortical hypodensities of indetereminate age in the bilateral thalamic, basal ganglia regions as well as in the christina. Assessment and Recommendations Assessment: 63 year old hypertensive diabetic man with a history of hy perlipidemia, PVD, and CAD, who presents with recurrent falls, confusion, and unsteady gait. He has improved since arrival in the ER but remains mildly confused. His preliminary laboratory tests reveal evidence of dehydration. Some of his improvement may be secondary to IV fluids. Other etiologies, such as infection, should also be excluded. Cranial CT reveals multiple bilateral hypodensities. These are likely chronic lacunar infarcts, but an MRI was suggested to exclude acute ischemia and the possibility of cardiac emboli. He is not a candidate for thrombolysis or endovascular intervention. Recommendations: 1. Cerebral MRI 2. Cardiac monitoring / Holter Monitor 3. Echocardiogram 4. Continue IV fluids 5. Evaluate for infection (UTI, URI,...) 6. Aspirin 81-mg 7. Neurology follow-up pending above Disposition: Admit patient to general med/surgery Diagnosis Impression: Other Diagnosis Other: Encephalopathy Pre-renal azotemia Cerebrovascular Disease Case discussed with: Dr. Juárez Inclusion Criteria Time Last Known Well: Unknown Neurological deficit considered to be disabling within 4.5 h of ischemic stroke symptom onset or patient last known well: No BP < 185/110: Yes Glucose > 50 mg/dL: Yes Exclusion Criteria Acute head trauma or recent severe head trauma within the previous 3 months: No Symptoms suggesting subarachnoid hemorrhage: No Elevated blood pressure despite IV medications (>185/>110 mm Hg): No Known coagulopathy - platelets <100,000/mm3, INR >1.7, aPTT >40s, PT >15s (do not wait for labs unless known thrombocytopenia or anticoagulation): No Thrombin inhibitors or factor Xa inhibitors - unless aPTT, INR, platelet count, ECT, TT, or appropriate direct factor Xa activity assays are normal or the patient has not received a dose for >48 hours (with normal renal function): No LMWH on anticoagulant (full treatment) dosing within < 24 hours: No Concomitant administration of IV Abciximab, or IV aspirin within 90 minutes after the start of IV alteplase initiation: No Extensive regions of marked clear and obvious hypodensity representing early ischemic changes irreversible injury: No Acute intracranial hemorrhage: No History of intracranial hemorrhage: No Symptoms consistent with infective endocarditis: No Known or suspected aortic arch dissection: No GI malignancy or recent GI bleed within 21 days: No Mild nondisabling stroke (NIHSS 0-5): No Prior ischemic stroke within previous 3 months: No Intracranial/intraspinal surgery within 3 months: No Intra-axial intracranial neoplasm: No Relative Exclusion Criteria One or more of the above relative contraindications render IV Thrombolysis inadvisable in my judgment.: No Thrombolysis Recommendation Thrombolysis recommended?: No Reason Thrombolysis not recommended Comments: No clinical signs of acute stroke. ICD-10 Code ICD-10 Code (Primary): G93.40 : Encephalopathy, unspecified ICD-10 Code: E86.0 : Dehydration ICD-10 Code: R26.0 : Ataxic gait Attestation Interaction Mode: Video & Phone Time of Phone Call : 08-20-2024 12:59 AM ET Time of Video Call : 08-20-2024 12:43 AM ET Interaction Attestation: Clinical telemedicine services delivered using HIPAA- compliant interactive video-audio telecommunications while the patient and the rendering provider were not in the same physical location. Written report was provided to the requesting provider. Evaluation Duration (mins): 44 Kwon Timer Summary ED Arrival Date and Time: 08-19-2024 10:49 PM ET Date and Time of Request: 08-20-2024 12:36 AM ET Physician Signature This document was electronically signed by: Nathan Junior MD
[2024-08-20 02:31] LABS: Appearance Clear (Clear); Bacteria None Seen /HPF (None Seen); Bilirubin Negative (Negative); Blood Trace (Negative); Epithelial Cells None Seen /HPF (None Seen); Glucose, Urine >=1000 mg/dL (Negative); Ketones Trace (Negative); Leukocyte Esterase Negative (Negative); Nitrite Negative (Negative); Protein,Urine Dip 30 (Negative); Specific Gravity 1.025 (1.005-1.030); WBC 0-2 /HPF (0-5)
[2024-08-20 02:42] LABS: Amphetamine,Urine NEGATIVE (NEGATIVE); Barbiturate,Urine NEGATIVE (NEGATIVE); Benzodiazepine,Urine NEGATIVE (NEGATIVE); Cocaine,Urine NEGATIVE (NEGATIVE); Methadone,Urine NEGATIVE (NEGATIVE); Opiate,Urine NEGATIVE (NEGATIVE); PCP,Urine NEGATIVE (NEGATIVE); THC,Urine NEGATIVE (NEGATIVE)
--- NOTE | 2024-08-20 03:00 | PCM.NOTE ---
[employer] [facility] Consultation Physician Signature This document was electronically signed by: Nathan Junior MD Consult Cover Page FROM: [employer], Call Back Number: [phone] SUBJECT: Consult Recommendations Date and Time of Report: 08/20/2024 02:55 AM ET Items Contained in this Document: Neurology Consult Note Consult Information Member Facility: [facility] Facility Consult ID: [id number] Facility Time Zone: ET Date and Time of Request: 08-20-2024 12:36 AM ET Requesting Clinician: DR. 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 She was not present during the examination, but reported to EMS that she heard him fall at approximately 21:30 EDT and found him on the floor. He appeared somewhat confused prompting the call to EMS. Upon arrival in the ER he was noted to be confused and unable to ambulate without assistance. At the time of the current examination he was more responsive, but was unable to explain specifically why he was in the ER. He did report that he had been without his medications for several weeks, but resumed taking them 1-2 weeks ago. Number of Documented HPI Elements: 4+ Medical History Medical History: Back pain, Coronary Artery Disease, Diabetes Mellitus, Hyperlipidemia, Hypertension Other Medical History: PVD S/P RLE stenting Other Past Procedures: Right leg stent Pertinent Family History: Unknown Allergies Other Allergies: Keflex Medications Anti-Coagulants: None Anti-Platelets: None Other Medications: Baclofen, Doxycycline, Lisinopril-HCTZ, Atorvastatin, Farxiga, Lantus Social History Alcohol Use: Current Drug Use: None Tobacco Use: Current Other Social History : Drinks alcohol occasionally on a social basis, smokes cigarettes 1/2 ppd Vital Signs Temperature: Afebrile Blood Pressure (mmHg): 107/64 Heart Rate (bpm): 68 Respiration Rate (/min): 22 O2 Sat (%): 100 POC Glucose(mg/dL): 182 Oxygen Delivery Method: Room Air EKG Rhythm: Sinus Rhythm Date and Time: 08/20/2024 01:15:13 AM ET POC Glucose(mg/dL): 182 Review Of Systems General, Constitutional: Pertinent Positives/Negatives General, Constitutional Comments: Reports "not feeling well" for several weeks, but unable to describe his symptoms further Neurological: Pertinent Positives/Negatives Neurological comments: No known prior history of TIA or stroke Cardiovascular: Pertinent Positives/Negatives Cardiovascular Comments: CAD S/P AK in the past. PVD S/P stenting in the right leg Ears, Nose, Throat: Pertinent Positives/Negatives Ears, Nose, Throat Comments: Took Doxycycline for suspected sinus infection within the past 1-2 weeks Respiratory: Pertinent Positives/Negatives Respiratory comments: No recent cough, shortness of breath Genitourinary: Pertinent Positives/Negatives Genitourinary comments: No dysuria or frequency reported Musculoskeletal: Pertinent Positives/Negatives Musculoskeletal comments: Chronic lower back pain Endocrine: Pertinent Positives/Negatives Endocrine comments: Diabetes NIH Stroke Scale NIH Stroke Scale Score: 2 1. Level of Consciousness: 0 : alert; keenly responsive. 1a. LOC Questions: 2 : Answers neither question correctly. 1b. LOC Commands: 0 : Performs both tasks correctly. 2. Best Gaze: 0 : Normal. 3. Visual: 0 : No visual loss. 4. Facial Palsy: 0 : Normal symmetrical movements. 5a. Motor Left Arm: 0 : No drift; limb holds 90 (or 45) degrees for full 10 seconds. 5b. Motor Right Arm : 0 : No drift; limb holds 90 (or 45) degrees for full 10 seconds. 6a. Motor Left Le : No drift; leg holds 30-degree position for full 5 seconds. 6b. Motor Right Le : No drift; leg holds 30-degree position for full 5 seconds. 7. Limb Ataxia: 0 : Absent. 8. Sensory: 0 : Normal; no sensory loss. 9. Best Language: 0 : No aphasia; normal. 10. Dysarthria: 0 : Normal. 11. Extinction and inattention (formerly Neglect) : 0 : No abnormality. NIHSS Entry Time: 08/20/2024 01:16:46 AM ET Exam NEUROLOGICAL EXAMINATION MENTAL STATUS: He was awake and alert. He knew that he was in a hospitla, but could not explain why. He was unable to name the month or the day of the week. Speech was clear. Language was fluent. CRANIAL NERVES: Visual hayes were full. Extraocular movements were full and conjugate. There was no ptosis. Facial sensation was intact to light touch. There was no facial asymmetry. MOTOR: There was no pronator drift. Fine motor function was intact in both hands. There was no fixed arm roll. He was able to elevate each leg off the bed for 5 seconds. SENSORY: Sensation was intact to light touch throughout COORDINATION: There was no nystagmus or dysmetria Clinician assisting with exam: RN assisting Labs and Imaging Labs available?: Yes Blood Glucose (mg/dL): 182 WBC (mcL): 13.5 HGB (g/dL): 16.7 HCT (%): 50.8 PLT (mcL): 274 Na (mEq/L): 136 K (mEq/L): 3.7 BUN (mg/dL): 65 Cr (mg/dL): 1.4 Other Labs: Magnesium=3.2 Ammonia= <9 CT: Cortical atrophy, microvascular white matter changes, scattered subcortical hypodensities of indetereminate age in the bilateral thalamic, basal ganglia regions as well as in the christina. Assessment and Recommendations Assessment: 63 year old hypertensive diabetic man with a history of hyperlipidemia, PVD, and CAD, who presents with recurrent falls, confusion, and unsteady gait. He has improved since arrival in the ER but remains mildly confused. His preliminary laboratory tests reveal evidence of dehydration. Some of his improvement may be secondary to IV fluids. Other etiologies, such as infection, should also be excluded. Cranial CT reveals multiple bilateral hypodensities. These are likely chronic lacunar infarcts, but an MRI was suggested to exclude acute ischemia and the possibility of cardiac emboli. He is not a candidate for thrombolysis or endovascular intervention. Recommendations: 1. Cerebral MRI 2. Cardiac monitoring / Holter Monitor 3. Echocardiogram 4. Continue IV fluids 5. Evaluate for infection (UTI, URI,...) 6. Aspirin 81-mg 7. Neurology follow-up pending above Disposition: Admit patient to general med/surgery Diagnosis Impression: Encephalopathy Pre-renal azotemia Cerebrovascular Disease Case discussed with: Dr. Juárez Inclusion Criteria Time Last Known Well: Unknown Neurological deficit considered to be disabling within 4.5 h of ischemic stroke symptom onset or patient last known well: No BP < 185/110: Yes Glucose > 50 mg/dL: Yes Exclusion Criteria Acute head trauma or recent severe head trauma within the previous 3 months: No Symptoms suggesting subarachnoid hemorrhage: No Elevated blood pressure despite IV medications (>185/>110 mm Hg): No Known coagulopathy - platelets <100,000/mm3, INR >1.7, aPTT >40s, PT >15s (do not wait for labs unless known thrombocytopenia or anticoagulation): No Thrombin inhibitors or factor Xa inhibitors - unless aPTT, INR, platelet count, ECT, TT, or appropriate direct factor Xa activity assays are normal or the patient has not received a dose for >48 hours (with normal renal function): No LMWH on anticoagulant (full treatment) dosing within < 24 hours: No Concomitant administration of IV Abciximab, or IV aspirin within 90 minutes after the start of IV alteplase initiation: No Extensive regions of marked clear and obvious hypodensity representing early ischemic changes irreversible injury: No Acute intracranial hemorrhage: No History of intracranial hemorrhage: No Symptoms consistent with infective endocarditis: No Known or suspected aortic arch dissection: No GI malignancy or recent GI bleed within 21 days: No Mild nondisabling stroke (NIHSS 0-5): No Prior ischemic stroke within previous 3 months: No Intracranial/intraspinal surgery within 3 months: No Intra-axial intracranial neoplasm: No Relative Exclusion Criteria One or more of the above relative contraindications render IV Thrombolysis inadvisable in my judgment.: No Thrombolysis Recommendation Thrombolysis recommended?: No Reason Thrombolysis not recommended Comments: No clinical signs of acute stroke. ICD-10 Code ICD-10 Code (Primary): G93.40 : Encephalopathy, unspecified ICD-10 Code: E86.0 : Dehydration ICD-10 Code: R26.0 : Ataxic gait Attestation Interaction Mode: Video & Phone Time of Phone Call : 08-20-2024 12:59 AM ET Time of Video Call : 08-20-2024 12:43 AM ET Interaction Attestation: Clinical telemedicine services delivered using HIPAA- compliant interactive video-audio telecommunications while the patient and the rendering provider were not in the same physical location. Written report was provided to the requesting provider. Evaluation Duration (mins): 44 Kwon Timer Summary ED Arrival Date and Time: 08-19-2024 10:49 PM ET Date and Time of Request: 08-20-2024 12:36 AM ET Physician Signature This document was electronically signed by: Nathan Junior MD
[2024-08-20] MEDS ORDERED: Sodium Chloride 0.9% 500 ML 500 ML IV ONE (05:43)
[2024-08-20] MEDS ORDERED: HUMALOG SQ PRN (05:47)
--- NOTE | 2024-08-20 05:54 | PCM.HP ---
History of Present Illness - Chief Complaint Chief Complaint: Confusion, ataxic gait Date: 08/20/24 History of Present Illness: is a 63 year old male with DM2, HTN who presents with falls for the past 2-3 days. Per patient, he fell 4-5 times. He denies injury. He came to ED and when asked to walk, he was noted to have a gait abnormality. CTH showed chronic microvascular disease. Neuro was consulted and recommended admission and MRI. - Review of Systems Additional Findings: All other ROS is negative unless mentioned above. Medications & Allergies Home Medications: Home Medication List Atorvastatin Calcium 40 mg PO DAILY 08/19/24 [History Confirmed 08/19/24] Baclofen 10 mg [Lioresal 10 mg] 10 mg PO TID 08/19/24 [History Confirmed 08/19/24] Dapagliflozin Propanediol [Farxiga] 10 mg PO DAILY 08/19/24 [History Confirmed 08/19/24] Doxycycline Monohydrate 100 mg PO BID 08/19/24 [History Confirmed 08/19/24] Insulin Glargine,Hum.rec.anlog [Lantus] 25 units SQ DAILY 08/19/24 [History Confirmed 08/19/24] Lisinopril/Hydrochlorothiazide [Zestoretic 20-25 mg Tablet] 1 tab PO DAILY 08/19/24 [History Confirmed 08/19/24] Metformin HCl [Metformin ER Osmotic] 1,000 mg PO BID 08/19/24 [History Confirmed 08/19/24] Allergies/Adverse Reactions: Allergies Allergy/AdvReac Type Severity Reaction Status Date / Time No Known Drug Allergies Allergy Verified 08/19/24 23:24 - Past Medical History Past Medical History: Yes (poor historian) Neurological History: No Pertinent History ENT History: No Pertinent History Cardiac History: High Cholesterol, Hypertension, Myocardial Infarction (NE) Respiratory History: Other Endocrine Medical History: Diabetes Type II Musculoskelatal History: Other GI Medical History: No Pertinent History Pyscho-Social History: No Pertinent History Male Reproductive Disorders: No Pertinent History Comment: BACK SPASMS, PATIENT STATES HE HAD 2 HEART ATTACKS IN 2000, BLACK SPOT ON RIGHT LUNG THAT IS NOT CANCER. FOUND IN 2023-HAS NOT GROWN - Past Surgical History Past Surgical History: No (PT DENIES) Neuro Surgical History: No Pertinent History Cardiac History: Cardiac Stent Respiratory Surgery: No Pertinent History GI Surgical History: No Pertinent History Genitourinary Surgical Hx: No Pertinent History Musculskeletal Surgical Hx: No Pertinent History Male Surgical History: No Pertinent History - Social History Smoking Status: Current every day smoker How long have you smoked: 50 YEARS Exposure to second hand smoke: Yes Alcohol: Occasionally Drug Use: none - Social Determinants of Health Will the patient participate in the screening: Declined to provide - Physical Exam Vital Signs: Vital Signs - 24 hr Temp Pulse Resp BP BP Pulse Ox 08/20/24 04:19 96.5 F 57 L 18 116/57 96 08/20/24 03:42 57 L 96 08/20/24 03:06 96 08/20/24 03:00 67 20 116/62 97 08/20/24 02:30 101/62 97 08/20/24 02:00 57 L 16 114/62 100 08/20/24 01:30 60 17 111/61 91 L 08/20/24 01:01 60 15 116/60 95 08/20/24 00:37 63 19 107/64 95 08/20/24 00:31 85 12 108/59 100 08/20/24 00:00 70 20 100/61 97 08/19/24 23:49 72 22 100/64 94 L 08/19/24 23:30 72 28 H 100/64 92 L 08/19/24 23:27 95 08/19/24 23:04 71 30 H 107/81 95 08/19/24 22:53 96.5 F 71 17 107/81 96 General Appearance: no apparent distress Neurologic Exam: alert (oriented to self and place) Eye Exam: PERRL/EOMI, eyes nml inspection Ears, Nose, Throat Exam: normal ENT inspection Neck Exam: normal inspection Respiratory Exam: normal breath sounds Cardiovascular Exam: regular rate/rhythm, normal heart sounds, normal peripheral pulses Gastrointestinal/Abdomen Exam: soft, normal bowel sounds Skin Exam: normal color Results - Labs Lab/Micro Results: Lab Results-Last 24 Hours 08/19/24 08/19/24 08/19/24 Range/Units 23:00 23:30 23:35 WBC 13.5 H (4.23-9.07) x10^3/uL RBC 5.73 (4.63-6.08) x10^6/uL Hgb 16.7 (13.7-17.5) g/dL Hct 50.8 (40.1-51.0) % MCV 88.7 (79.0-92.2) fL MCH 29.1 (25.7-32.2) pg MCHC 32.9 (32.3-36.5) g/dL RDW 12.7 (11.6-14.4) % Plt Count 274 (163-337) x10^3/uL MPV 10.8 (9.4-12.4) fL Gran % 71.1 H (34.0-67.9) % Immature Gran % (Auto) 0.4 (0.001-0.429) % Nucleat RBC Rel Count 0.0 (0.00-0.2) % Eos # (Auto) 0.04 (0.04-0.54) x10^3/uL Immature Gran # (Auto) 0.06 H (0.001-0.031) x10^3u/L Absolute Lymphs (auto) 2.64 (1.32-3.57) x10^3/uL Absolute Monos (auto) 1.12 H (0.30-0.82) x10^3/uL Absolute Nucleated RBC 0.00 (0.00-0.012) x10^3u/L Lymphocytes % 19.6 L (21.8-53.1) % Monocytes % 8.3 (5.3-12.2) % Eosinophils % 0.3 L (0.8-7.0) % Basophils % 0.3 (0.2-1.2) % Absolute Granulocytes 9.59 H (1.78-5.38) x10^3/uL Basophils # 0.04 (0.01-0.08) x10^3/uL Sodium (135-145) mmol/L Potassium (3.5-5.1) mmol/L Chloride (98-107) mmol/L Carbon Dioxide (22-30) mmol/L Anion Gap (5-15) MEQ/L BUN (9-20) mg/dL Creatinine (0.66-1.25) mg/dL Estimated GFR ML/MIN Glucose (74-106) mg/dL Lactic Acid 1.5 (0.4-2.0) Calcium (8.4-10.2) mg/dL Magnesium (1.6-2.3) mg/dL Total Bilirubin (0.2-1.3) mg/dL AST (17-59) U/L ALT (0-50) U/L Alkaline Phosphatase (38-126) U/L Ammonia (9-30) umol/L Troponin I (0.000-0.033) ng/mL NT-Pro-B Natriuret Pep 31.5 (<300) pg/mL Serum Total Protein (6.3-8.2) g/dL Albumin (3.5-5.0) g/dL TSH 3rd Generation (0.470-4.680) mIU/L Urine Color (Yellow) Urine Appearance (Clear) Urine pH (4.6-8.0) Ur Specific [place] (1.005-1.030) Urine Protein (Negative) Urine Glucose (UA) (Negative) mg/dL Urine Ketones (Negative) Urine Blood (Negative) Urine Nitrite (Negative) Urine Bilirubin (Negative) Urine Urobilinogen (0.2) mg/dL Ur Leukocyte Esterase (Negative) U Hyaline Cast (Auto) (0-2) /LPF Urine Microscopic RBC (0-5) /HPF Urine Microscopic WBC (0-5) /HPF Ur Epithelial Cells (None Seen) /HPF Urine Bacteria (None Seen) /HPF Urine Culture Reflexed (NO) Urine Opiates Level (NEGATIVE) Ur Methadone (NEGATIVE) Urine Barbiturates (NEGATIVE) Ur Phencyclidine (PCP) (NEGATIVE) Urine Amphetamine (NEGATIVE) U Benzodiazepine Level (NEGATIVE) Urine Cocaine (NEGATIVE) Urine Marijuana (THC) (NEGATIVE) 08/19/24 08/19/24 08/19/24 Range/Units 23:35 23:35 23:35 WBC (4.23-9.07) x10^3/uL RBC (4.63-6.08) x10^6/uL Hgb (13.7-17.5) g/dL Hct (40.1-51.0) % MCV (79.0-92.2) fL MCH (25.7-32.2) pg MCHC (32.3-36.5) g/dL RDW (11.6-14.4) % Plt Count (163-337) x10^3/uL MPV (9.4-12.4) fL Gran % (34.0-67.9) % Immature Gran % (Auto) (0.001-0.429) % Nucleat RBC Rel Count (0.00-0.2) % Eos # (Auto) (0.04-0.54) x10^3/uL Immature Gran # (Auto) (0.001-0.031) x10^3u/L Absolute Lymphs (auto) (1.32-3.57) x10^3/uL Absolute Monos (auto) (0.30-0.82) x10^3/uL Absolute Nucleated RBC (0.00-0.012) x10^3u/L Lymphocytes % (21.8-53.1) % Monocytes % (5.3-12.2) % Eosinophils % (0.8-7.0) % Basophils % (0.2-1.2) % Absolute Granulocytes (1.78-5.38) x10^3/uL Basophils # (0.01-0.08) x10^3/uL Sodium 136 (135-145) mmol/L Potassium 3.7 (3.5-5.1) mmol/L Chloride 93 L (98-107) mmol/L Carbon Dioxide 28 (22-30) mmol/L Anion Gap 18.6 H (5-15) MEQ/L BUN 69 H (9-20) mg/dL Creatinine 1.40 H (0.66-1.25) mg/dL Estimated GFR 56.5 ML/MIN Glucose 182 H (74-106) mg/dL Lactic Acid (0.4-2.0) Calcium 8.8 (8.4-10.2) mg/dL Magnesium 3.2 H (1.6-2.3) mg/dL Total Bilirubin 0.70 (0.2-1.3) mg/dL AST 23 (17-59) U/L ALT 16 (0-50) U/L Alkaline Phosphatase 144 H (38-126) U/L Ammonia (9-30) umol/L Troponin I < 0.012 (0.000-0.033) ng/mL NT-Pro-B Natriuret Pep (<300) pg/mL Serum Total Protein 6.7 (6.3-8.2) g/dL Albumin 3.9 (3.5-5.0) g/dL TSH 3rd Generation 1.847 (0.470-4.680) mIU/L Urine Color (Yellow) Urine Appearance (Clear) Urine pH (4.6-8.0) Ur Specific [place] (1.005-1.030) Urine Protein (Negative) Urine Glucose (UA) (Negative) mg/dL Urine Ketones (Negative) Urine Blood (Negative) Urine Nitrite (Negative) Urine Bilirubin (Negative) Urine Urobilinogen (0.2) mg/dL Ur Leukocyte Esterase (Negative) U Hyaline Cast (Auto) (0-2) /LPF Urine Microscopic RBC (0-5) /HPF Urine Microscopic WBC (0-5) /HPF Ur Epithelial Cells (None Seen) /HPF Urine Bacteria (None Seen) /HPF Urine Culture Reflexed (NO) Urine Opiates Level (NEGATIVE) Ur Methadone (NEGATIVE) Urine Barbiturates (NEGATIVE) Ur Phencyclidine (PCP) (NEGATIVE) Urine Amphetamine (NEGATIVE) U Benzodiazepine Level (NEGATIVE) Urine Cocaine (NEGATIVE) Urine Marijuana (THC) (NEGATIVE) 08/19/24 08/20/24 08/20/24 Range/Units 23:35 02:14 02:19 WBC (4.23-9.07) x10^3/uL RBC (4.63-6.08) x10^6/uL Hgb (13.7-17.5) g/dL Hct (40.1-51.0) % MCV (79.0-92.2) fL MCH (25.7-32.2) pg MCHC (32.3-36.5) g/dL RDW (11.6-14.4) % Plt Count (163-337) x10^3/uL MPV (9.4-12.4) fL Gran % (34.0-67.9) % Immature Gran % (Auto) (0.001-0.429) % Nucleat RBC Rel Count (0.00-0.2) % Eos # (Auto) (0.04-0.54) x10^3/uL Immature Gran # (Auto) (0.001-0.031) x10^3u/L Absolute Lymphs (auto) (1.32-3.57) x10^3/uL Absolute Monos (auto) (0.30-0.82) x10^3/uL Absolute Nucleated RBC (0.00-0.012) x10^3u/L Lymphocytes % (21.8-53.1) % Monocytes % (5.3-12.2) % Eosinophils % (0.8-7.0) % Basophils % (0.2-1.2) % Absolute Granulocytes (1.78-5.38) x10^3/uL Basophils # (0.01-0.08) x10^3/uL Sodium (135-145) mmol/L Potassium (3.5-5.1) mmol/L Chloride (98-107) mmol/L Carbon Dioxide (22-30) mmol/L Anion Gap (5-15) MEQ/L BUN (9-20) mg/dL Creatinine (0.66-1.25) mg/dL Estimated GFR ML/MIN Glucose (74-106) mg/dL Lactic Acid (0.4-2.0) Calcium (8.4-10.2) mg/dL Magnesium (1.6-2.3) mg/dL Total Bilirubin (0.2-1.3) mg/dL AST (17-59) U/L ALT (0-50) U/L Alkaline Phosphatase (38-126) U/L Ammonia < 9 L (9-30) umol/L Troponin I < 0.012 (0.000-0.033) ng/mL NT-Pro-B Natriuret Pep (<300) pg/mL Serum Total Protein (6.3-8.2) g/dL Albumin (3.5-5.0) g/dL TSH 3rd Generation (0.470-4.680) mIU/L Urine Color Yellow (Yellow) Urine Appearance Clear (Clear) Urine pH 5.0 (4.6-8.0) Ur Specific [place] 1.025 (1.005-1.030) Urine Protein 30 (Negative) Urine Glucose (UA) >=1000 A (Negative) mg/dL Urine Ketones Trace A (Negative) Urine Blood Trace (Negative) Urine Nitrite Negative (Negative) Urine Bilirubin Negative (Negative) Urine Urobilinogen 1.0 A (0.2) mg/dL Ur Leukocyte Esterase Negative (Negative) U Hyaline Cast (Auto) 3-5 A (0-2) /LPF Urine Microscopic RBC 3-5 (0-5) /HPF Urine Microscopic WBC 0-2 (0-5) /HPF Ur Epithelial Cells None Seen (None Seen) /HPF Urine Bacteria None Seen (None Seen) /HPF Urine Culture Reflexed YES (NO) Urine Opiates Level (NEGATIVE) Ur Methadone (NEGATIVE) Urine Barbiturates (NEGATIVE) Ur Phencyclidine (PCP) (NEGATIVE) Urine Amphetamine (NEGATIVE) U Benzodiazepine Level (NEGATIVE) Urine Cocaine (NEGATIVE) Urine Marijuana (THC) (NEGATIVE) 08/20/24 Range/Units 02:19 WBC (4.23-9.07) x10^3/uL RBC (4.63-6.08) x10^6/uL Hgb (13.7-17.5) g/dL Hct (40.1-51.0) % MCV (79.0-92.2) fL MCH (25.7-32.2) pg MCHC (32.3-36.5) g/dL RDW (11.6-14.4) % Plt Count (163-337) x10^3/uL MPV (9.4-12.4) fL Gran % (34.0-67.9) % Immature Gran % (Auto) (0.001-0.429) % Nucleat RBC Rel Count (0.00-0.2) % Eos # (Auto) (0.04-0.54) x10^3/uL Immature Gran # (Auto) (0.001-0.031) x10^3u/L Absolute Lymphs (auto) (1.32-3.57) x10^3/uL Absolute Monos (auto) (0.30-0.82) x10^3/uL Absolute Nucleated RBC (0.00-0.012) x10^3u/L Lymphocytes % (21.8-53.1) % Monocytes % (5.3-12.2) % Eosinophils % (0.8-7.0) % Basophils % (0.2-1.2) % Absolute Granulocytes (1.78-5.38) x10^3/uL Basophils # (0.01-0.08) x10^3/uL Sodium (135-145) mmol/L Potassium (3.5-5.1) mmol/L Chloride (98-107) mmol/L Carbon Dioxide (22-30) mmol/L Anion Gap (5-15) MEQ/L BUN (9-20) mg/dL Creatinine (0.66-1.25) mg/dL Estimated GFR ML/MIN Glucose (74-106) mg/dL Lactic Acid (0.4-2.0) Calcium (8.4-10.2) mg/dL Magnesium (1.6-2.3) mg/dL Total Bilirubin (0.2-1.3) mg/dL AST (17-59) U/L ALT (0-50) U/L Alkaline Phosphatase (38-126) U/L Ammonia (9-30) umol/L Troponin I (0.000-0.033) ng/mL NT-Pro-B Natriuret Pep (<300) pg/mL Serum Total Protein (6.3-8.2) g/dL Albumin (3.5-5.0) g/dL TSH 3rd Generation (0.470-4.680) mIU/L Urine Color (Yellow) Urine Appearance (Clear) Urine pH (4.6-8.0) Ur Specific [place] (1.005-1.030) Urine Protein (Negative) Urine Glucose (UA) (Negative) mg/dL Urine Ketones (Negative) Urine Blood (Negative) Urine Nitrite (Negative) Urine Bilirubin (Negative) Urine Urobilinogen (0.2) mg/dL Ur Leukocyte Esterase (Negative) U Hyaline Cast (Auto) (0-2) /LPF Urine Microscopic RBC (0-5) /HPF Urine Microscopic WBC (0-5) /HPF Ur Epithelial Cells (None Seen) /HPF Urine Bacteria (None Seen) /HPF Urine Culture Reflexed (NO) Urine Opiates Level NEGATIVE (NEGATIVE) Ur Methadone NEGATIVE (NEGATIVE) Urine Barbiturates NEGATIVE (NEGATIVE) Ur Phencyclidine (PCP) NEGATIVE (NEGATIVE) Urine Amphetamine NEGATIVE (NEGATIVE) U Benzodiazepine Level NEGATIVE (NEGATIVE) Urine Cocaine NEGATIVE (NEGATIVE) Urine Marijuana (THC) NEGATIVE (NEGATIVE) - Radiology Impressions Radiology Exams & Impressions: Radiology Procedures Category Date Time Status CHEST 1 VIEW (PORTABLE) Stat Exams 08/19/24 23:20 Taken ECHO W/2D AND DOPPLER [US] Routine Exams 08/20/24 05:45 Ordered HEAD WITHOUT CONTRAST [CT] Stat Exams 08/19/24 22:50 Completed MRI BRAIN W/O CONTRAST [MRI] Routine Exams 08/20/24 05:45 Ordered - Other Procedures and Tests Respiratory Therapy 08/20/24 10:00 Smoking Cessation Education ONCE Assessment/Plan (1) Gait abnormality Current Visit: Yes Status: Acute Assessment & Plan: - seen by Neuro -> MRI Brain, TTE, asa Code(s): R26.9 - UNSPECIFIED ABNORMALITIES OF GAIT AND MOBILITY (2) Hypertension Current Visit: Yes Status: Acute Assessment & Plan: - BP meds on hold for CARMELO Code(s): I10 - ESSENTIAL (PRIMARY) HYPERTENSION (3) Hypermagnesemia Current Visit: Yes Status: Acute Assessment & Plan: - treating CARMELO - repeat Mg at 10a Code(s): E83.41 - HYPERMAGNESEMIA (4) Acute renal injury Current Visit: Yes Status: Acute Assessment & Plan: - fluids and recheck Cr at 10a Code(s): N17.9 - ACUTE KIDNEY FAILURE, UNSPECIFIED (5) Dehydration Current Visit: Yes Status: Acute Assessment & Plan: - fluids Code(s): E86.0 - DEHYDRATION (6) Falls Current Visit: Yes Status: Acute Assessment & Plan: - PT/OT Code(s): R29.6 - REPEATED FALLS (7) DM2 (diabetes mellitus, type 2) Current Visit: Yes Status: Acute Assessment & Plan: - sliding scale insulin (8) On deep vein thrombosis (DVT) prophylaxis Current Visit: Yes Status: Acute Assessment & Plan: - Lovenox subQ Code(s): Z79.899 - OTHER [facility] (CURRENT) DRUG THERAPY Telemedicine Encounter - Telemedicine Encounter Telemedicine Encounter: "The entirety of this encounter was performed via Telemedicine" This visit was performed using real-time audio and video connection between my location and thepatients locationwith the assistance of a surrogateat the patients location. Written or verbal consent was obtained from the patient/guardian to perform this visit usingback[facility] hospitalmedicine technology. Any patient questions regarding the telemedicine interaction were answered.
[2024-08-20 07:50] LABS: Hematocrit 47.9 % (40.1-51.0); Hemoglobin 15.6 g/dL (13.7-17.5); Mean Cell Volume 89.2 fL (79.0-92.2); Mean Corpuscular Hemoglobin 29.1 pg (25.7-32.2); Mean Corpuscular Hgb Concent. 32.6 g/dL (32.3-36.5); Mean Platelet Volume 10.9 fL (9.4-12.4); Platelet Count 260 x10^3/uL (163-337); Red Blood Count 5.37 x10^6/uL (4.63-6.08); Red Cell Distribution Width 12.7 % (11.6-14.4); White Blood Count 11.4 x10^3/uL (4.23-9.07)
[2024-08-20 08:05] LABS: ANION GAP 16.7 MEQ/L (5-15); Calcium 8.3 mg/dL (8.4-10.2); Creatinine 1 1.05 mg/dL (0.66-1.25); EST GLOMERULAR FILTRATION RATE 79.8 ML/MIN; MAGNESIUM 3.1 mg/dL (1.6-2.3); Potassium 3.7 mmol/L (3.5-5.1)
--- NOTE | 2024-08-20 08:58 | XRAY ---
Indication: Chest pain. Comparison: None Portable apical lordotic chest inflated and clear. Heart not enlarged. Bony thorax intact with minimal degenerative changes. No acute findings.
[2024-08-20] MEDS ORDERED: BABY ASPIRIN 81 MG CHEW PO SCH (10:00)
[2024-08-20] MEDS ORDERED: LIPITOR 40MG PO SCH (10:00)
[2024-08-20] MEDS: ENOXAPARIN SODIUM SQ SCH (10:02)
[2024-08-20] MEDS: ZOCOR 20MG PO SCH (10:04)
[2024-08-20] MEDS: ECOTRIN 81 MG PO SCH (10:04)
[2024-08-20] MEDS: Sodium Chloride 0.9% 1000 ML 1,000 ML IV SCH (10:05)
--- NOTE | 2024-08-20 14:19 | XRAY ---
Indication: Abnormal gait. Sagittal, coronal, and axial MRI brain performed without contrast using T1, T2, FLAIR, diffusion, and ADC sequences. Comparison: None Age-appropriate global atrophy. T2 FLAIR sequences demonstrate minimal periventricular hyperintensities bilaterally. Smaller focal rounded hyperdensities seen right trigone, largest 7 mm. Splenium of corpus callosum also demonstrates round hyperintensity. Above signal abnormalities favors demyelinating process such as multiple sclerosis. A few periventricular and corpus callosum hyperintensities demonstrates restricted diffusion signal on diffusion weighted imaging which can be seen with active lesions. Tiny remote lacunar infarct left basal ganglia and midline brain stem. No acute intracranial hemorrhage, abnormal extra-axial fluid collection, or mass effect. Fourth ventricle is midline without hydrocephalus. 7/8 cranial nerve complex bilaterally symmetric. Normal flow void signal within the major intracerebral circulation. Normal appearing craniocervical junction and sella turcica. Paranasal sinuses are clear. Impression: 1. Hyperintensities in the periventricular white matter bilaterally and splenium of corpus callosum as detailed. Rule out multiple sclerosis. A few demonstrates restricted diffusion signal on diffusion weighted imaging which can be seen with active lesions. Acute disseminated encephalomyelitis and Lyme's disease can have a similar MRI appearance. 2. Atrophy within normal limits. Tiny remote lacunar infarcts left basal ganglia and brainstem.
--- NOTE | 2024-08-20 14:35 | XRAY ---
Indication: Weight loss. Multiple contiguous axial images obtained through the abdomen and pelvis using 80 cc Isovue 370 contrast. Comparison: None Lung bases demonstrate mild pulmonary emphysema. There is 6 mm round indeterminant right middle lobe noncalcified nodule. No infiltrate or effusion. Heart not enlarged. Noncontrasted stomach and bowel loops appear nonobstructed. Normal appendix. Mild diffuse scattered colonic diverticulosis without diverticulitis. Gallbladder mildly distended without gallstones or biliary distention. Both kidneys enhance and excrete without hydronephrosis/hydroureter. No free fluid/air. Remaining liver, gallbladder, pancreas, spleen, adrenal glands, kidneys, ureters, and bladder are unremarkable. Mild scattered aortoiliac calcifications. No AAA or pathologic retroperitoneal lymphadenopathy. Osseous structures intact with minimal/mild degenerative changes throughout thoracolumbar spine. Incidental left L5 spondylolysis without listhesis. No ventral or inguinal hernias. Impression: 1. 6 mm indeterminate right middle lobe noncalcified nodule. This was reported in CT chest 2 days ago. Again recommend follow-up per Fleischner guidelines. 2. Mild distended gallbladder without gallstones. Gallbladder sonogram may yield further information if clinically warranted. 3. Chronic findings including pulmonary emphysema, colonic diverticulosis, arteriosclerotic disease, and chronic bony findings.
[2024-08-20 16:18] LABS: INFLUENZA A NEGATIVE (NEGATIVE); INFLUENZA B NEGATIVE (NEGATIVE); RESPIRATORY SYNCTIAL VIRUS NEGATIVE (NEGATIVE); SARS-CoV-2 Xpert Express NEGATIVE (NEGATIVE)
[2024-08-21 04:46] LABS: Absolute Neutrophil Ct (ANC) 6.35 x10^3/uL (1.78-5.38); BASOPHIL % 0.2 % (0.2-1.2); Basophil (Absolute #) 0.02 x10^3/uL (0.01-0.08); Eosinophil % 1.1 % (0.8-7.0); Hematocrit 43.3 % (40.1-51.0); IMMATURE GRAN # 0.03 x10^3u/L (0.001-0.031); IMMATURE GRAN % 0.3 % (0.001-0.429); Lymphocyte (Absolute #) 2.09 x10^3/uL (1.32-3.57); Mean Cell Volume 89.5 fL (79.0-92.2); Mean Corpuscular Hemoglobin 28.9 pg (25.7-32.2); Mean Corpuscular Hgb Concent. 32.3 g/dL (32.3-36.5); Monocytes % 9.5 % (5.3-12.2); Neutrophil % 66.9 % (34.0-67.9); Platelet Count 223 x10^3/uL (163-337); Red Blood Count 4.84 x10^6/uL (4.63-6.08); Red Cell Distribution Width 12.6 % (11.6-14.4); White Blood Count 9.5 x10^3/uL (4.23-9.07)
[2024-08-21 05:00] LABS: Erythrocyte Sedimentation Rate 18 mm/hr (0-15)
[2024-08-21 05:02] LABS: ALBUMIN 3.3 g/dL (3.5-5.0); ANION GAP 11.5 MEQ/L (5-15); BILIRUBIN,TOTAL 0.4 mg/dL (0.2-1.3); Creatinine 1 0.89 mg/dL (0.66-1.25); EST GLOMERULAR FILTRATION RATE 96.3 ML/MIN; Potassium 3.3 mmol/L (3.5-5.1); Total Protein 6.1 g/dL (6.3-8.2)
--- NOTE | 2024-08-21 05:55 | PCM.NOTE ---
Date and Time: 08/21/24 0505 Subjective Assessment: MR Ashraf is a 63-year-old male with DM2 and HTN presented with recurrent falls over the past few days, without reported injury but with a noticeable gait abnormality. Neurology was consulted, and MRI findings revealed periventricular white matter hyperintensities concerning for demyelinating disease, including multiple sclerosis, acute disseminated encephalomyelitis (ADEM), or Lyme disease. Additionally, remote lacunar infarcts were noted, raising concerns for cerebrovascular disease. The patient also reported significant unintentional weight loss (20 lbs in 2-3 weeks), persistent taste loss post-pneumonia, and numbness in his right-hand fingers and left forearm. Further evaluation showed acute kidney injury (CARMELO) and hypermagnesemia, prompting fluid resuscitation and repeat laboratory monitoring. BP medications were temporarily held due to CARMELO. CT imaging incidentally identified a 6mm noncalcified lung nodule requiring follow-up per Fleischner guidelines, along with mild gallbladder distension and other chronic changes, including emphysema and arteriosclerosis.He was initiated on aspirin and a statin for suspected vascular contributions to his symptoms, Lovenox for DVT prophylaxis, and sliding scale insulin for diabetes management. Neurology recommended a repeat MRI with contrast and potential lumbar puncture for further evaluation with possible transfer to higher level of care with neurology in person services. PT/OT was consulted for mobility assessment and fall prevention strategies. 08/21/24: Met with patient bedside. Endorses frustration with not being able to smoke. Counseled patient on the importance of smoking cessation. Patient is not ready to quit. No changes in symptoms continues with persistent taste loss post- pneumonia, and numbness in his right-hand fingers and left forearm.. GB US with no acute findings. MRI findings on repeat with re-identified grossly stable hyperintensities in periventricular white matter bilaterally and splenium of corpus callosum. Again rule out multiple sclerosis. A few periventricular hyperintensities enhance suggesting active demyelination. Acute disseminated encephalomyelitis and Lyme disease is again offered for clinical consideration. Again global atrophy and tiny remote lacunar infarct. Awaiting neuro follow up and re-evaluation with possible transfer. - Review of Systems Constitutional: No Symptoms Eyes: No Symptoms Ears, Nose, & Throat: No Symptoms Respiratory: No Symptoms Cardiac: No Symptoms Abdominal/Gastrointestinal: No Symptoms Genitourinary Symptoms: No Symptoms Musculoskeletal: No Symptoms Skin: No Symptoms Neurological: Parasthesia (right 1-3 fingers/left forearm) Psychological: No Symptoms Endocrine: No Symptoms Hematologic/Lymphatic: No Symptoms Immunological/Allergic: No Symptoms Objective Exam General Appearance: no apparent distress Neurologic Exam: alert, oriented x 3, cooperative Skin Exam: normal color Eye Exam: PERRL Ears, Nose, Throat Exam: normal ENT inspection Neck Exam: normal inspection Respiratory Exam: normal breath sounds, lungs clear Cardiovascular Exam: regular rate/rhythm, normal heart sounds Gastrointestinal/Abdomen Exam: soft, normal bowel sounds Extremity Exam: normal inspection Back Exam: normal inspection Male Genitalia Exam: deferred Rectal Exam: deferred Objective Data Vital Signs: Vital Signs - 24 hr Temp Pulse Resp BP Pulse Ox 08/21/24 04:00 97.8 F 60 18 122/62 98 08/21/24 00:00 96.2 F 58 L 18 119/59 98 08/20/24 20:00 97.6 F 60 18 114/53 98 08/20/24 16:00 98.0 F 55 L 18 113/62 98 08/20/24 11:48 97.5 F 65 18 113/54 95 08/20/24 08:00 97.7 F 59 L 16 102/57 95 08/20/24 07:51 94 L 08/20/24 05:53 93 L Pain Assessment - Last Documented Pain Intensity 0 Intake and Output: Intake & Output 08/18/24 08/19/24 08/20/24 08/21/24 11:59 11:59 11:59 11:59 Intake Total 240 600 Output Total 400 Balance 240 200 Weight 71 kg Lab Results: Lab Results-Last 24 Hours 08/20/24 08/20/24 08/20/24 Range/Units 07:30 07:30 07:30 WBC 11.4 H (4.23-9.07) x10^3/uL RBC 5.37 (4.63-6.08) x10^6/uL Hgb 15.6 (13.7-17.5) g/dL Hct 47.9 (40.1-51.0) % MCV 89.2 (79.0-92.2) fL MCH 29.1 (25.7-32.2) pg MCHC 32.6 (32.3-36.5) g/dL RDW 12.7 (11.6-14.4) % Plt Count 260 (163-337) x10^3/uL MPV 10.9 (9.4-12.4) fL Gran % (34.0-67.9) % Immature Gran % (Auto) (0.001-0.429) % Nucleat RBC Rel Count (0.00-0.2) % Eos # (Auto) (0.04-0.54) x10^3/uL Immature Gran # (Auto) (0.001-0.031) x10^3u/L Absolute Lymphs (auto) (1.32-3.57) x10^3/uL Absolute Monos (auto) (0.30-0.82) x10^3/uL Absolute Nucleated RBC (0.00-0.012) x10^3u/L Lymphocytes % (21.8-53.1) % Monocytes % (5.3-12.2) % Eosinophils % (0.8-7.0) % Basophils % (0.2-1.2) % Absolute Granulocytes (1.78-5.38) x10^3/uL Basophils # (0.01-0.08) x10^3/uL ESR (0-15) mm/hr Sodium 138 (135-145) mmol/L Potassium 3.7 (3.5-5.1) mmol/L Chloride 97 L (98-107) mmol/L Carbon Dioxide 28 (22-30) mmol/L Anion Gap 16.7 H (5-15) MEQ/L BUN 67 H (9-20) mg/dL Creatinine 1.05 (0.66-1.25) mg/dL Estimated GFR 79.8 ML/MIN Glucose 97 (74-106) mg/dL POC Glucometer (74 to 106) mg/dL Calcium 8.3 L (8.4-10.2) mg/dL Magnesium 3.1 H (1.6-2.3) mg/dL Total Bilirubin (0.2-1.3) mg/dL AST (17-59) U/L ALT (0-50) U/L Alkaline Phosphatase (38-126) U/L Troponin I < 0.012 (0.000-0.033) ng/mL Serum Total Protein (6.3-8.2) g/dL Albumin (3.5-5.0) g/dL Vitamin B12 (239-931) pg/mL Influenza Type A Ag (NEGATIVE) Influenza Type B Ag (NEGATIVE) RSV (PCR) (NEGATIVE) SARS-CoV-2 (PCR) (NEGATIVE) 08/20/24 08/20/24 08/20/24 Range/Units 07:30 07:43 11:25 WBC (4.23-9.07) x10^3/uL RBC (4.63-6.08) x10^6/uL Hgb (13.7-17.5) g/dL Hct (40.1-51.0) % MCV (79.0-92.2) fL MCH (25.7-32.2) pg MCHC (32.3-36.5) g/dL RDW (11.6-14.4) % Plt Count (163-337) x10^3/uL MPV (9.4-12.4) fL Gran % (34.0-67.9) % Immature Gran % (Auto) (0.001-0.429) % Nucleat RBC Rel Count (0.00-0.2) % Eos # (Auto) (0.04-0.54) x10^3/uL Immature Gran # (Auto) (0.001-0.031) x10^3u/L Absolute Lymphs (auto) (1.32-3.57) x10^3/uL Absolute Monos (auto) (0.30-0.82) x10^3/uL Absolute Nucleated RBC (0.00-0.012) x10^3u/L Lymphocytes % (21.8-53.1) % Monocytes % (5.3-12.2) % Eosinophils % (0.8-7.0) % Basophils % (0.2-1.2) % Absolute Granulocytes (1.78-5.38) x10^3/uL Basophils # (0.01-0.08) x10^3/uL ESR (0-15) mm/hr Sodium (135-145) mmol/L Potassium (3.5-5.1) mmol/L Chloride (98-107) mmol/L Carbon Dioxide (22-30) mmol/L Anion Gap (5-15) MEQ/L BUN (9-20) mg/dL Creatinine (0.66-1.25) mg/dL Estimated GFR ML/MIN Glucose (74-106) mg/dL POC Glucometer 103 139 H (74 to 106) mg/dL Calcium (8.4-10.2) mg/dL Magnesium (1.6-2.3) mg/dL Total Bilirubin (0.2-1.3) mg/dL AST (17-59) U/L ALT (0-50) U/L Alkaline Phosphatase (38-126) U/L Troponin I (0.000-0.033) ng/mL Serum Total Protein (6.3-8.2) g/dL Albumin (3.5-5.0) g/dL Vitamin B12 916 (239-931) pg/mL Influenza Type A Ag (NEGATIVE) Influenza Type B Ag (NEGATIVE) RSV (PCR) (NEGATIVE) SARS-CoV-2 (PCR) (NEGATIVE) 08/20/24 08/20/24 08/21/24 Range/Units 15:41 16:24 00:31 WBC (4.23-9.07) x10^3/uL RBC (4.63-6.08) x10^6/uL Hgb (13.7-17.5) g/dL Hct (40.1-51.0) % MCV (79.0-92.2) fL MCH (25.7-32.2) pg MCHC (32.3-36.5) g/dL RDW (11.6-14.4) % Plt Count (163-337) x10^3/uL MPV (9.4-12.4) fL Gran % (34.0-67.9) % Immature Gran % (Auto) (0.001-0.429) % Nucleat RBC Rel Count (0.00-0.2) % Eos # (Auto) (0.04-0.54) x10^3/uL Immature Gran # (Auto) (0.001-0.031) x10^3u/L Absolute Lymphs (auto) (1.32-3.57) x10^3/uL Absolute Monos (auto) (0.30-0.82) x10^3/uL Absolute Nucleated RBC (0.00-0.012) x10^3u/L Lymphocytes % (21.8-53.1) % Monocytes % (5.3-12.2) % Eosinophils % (0.8-7.0) % Basophils % (0.2-1.2) % Absolute Granulocytes (1.78-5.38) x10^3/uL Basophils # (0.01-0.08) x10^3/uL ESR (0-15) mm/hr Sodium (135-145) mmol/L Potassium (3.5-5.1) mmol/L Chloride (98-107) mmol/L Carbon Dioxide (22-30) mmol/L Anion Gap (5-15) MEQ/L BUN (9-20) mg/dL Creatinine (0.66-1.25) mg/dL Estimated GFR ML/MIN Glucose (74-106) mg/dL POC Glucometer 88 112 H (74 to 106) mg/dL Calcium (8.4-10.2) mg/dL Magnesium (1.6-2.3) mg/dL Total Bilirubin (0.2-1.3) mg/dL AST (17-59) U/L ALT (0-50) U/L Alkaline Phosphatase (38-126) U/L Troponin I (0.000-0.033) ng/mL Serum Total Protein (6.3-8.2) g/dL Albumin (3.5-5.0) g/dL Vitamin B12 (239-931) pg/mL Influenza Type A Ag NEGATIVE (NEGATIVE) Influenza Type B Ag NEGATIVE (NEGATIVE) RSV (PCR) NEGATIVE (NEGATIVE) SARS-CoV-2 (PCR) NEGATIVE (NEGATIVE) 08/21/24 08/21/24 Range/Units 04:25 04:25 WBC 9.5 H (4.23-9.07) x10^3/uL RBC 4.84 (4.63-6.08) x10^6/uL Hgb 14.0 (13.7-17.5) g/dL Hct 43.3 (40.1-51.0) % MCV 89.5 (79.0-92.2) fL MCH 28.9 (25.7-32.2) pg MCHC 32.3 (32.3-36.5) g/dL RDW 12.6 (11.6-14.4) % Plt Count 223 (163-337) x10^3/uL MPV 11.0 (9.4-12.4) fL Gran % 66.9 (34.0-67.9) % Immature Gran % (Auto) 0.3 (0.001-0.429) % Nucleat RBC Rel Count 0.0 (0.00-0.2) % Eos # (Auto) 0.10 (0.04-0.54) x10^3/uL Immature Gran # (Auto) 0.03 (0.001-0.031) x10^3u/L Absolute Lymphs (auto) 2.09 (1.32-3.57) x10^3/uL Absolute Monos (auto) 0.90 H (0.30-0.82) x10^3/uL Absolute Nucleated RBC 0.00 (0.00-0.012) x10^3u/L Lymphocytes % 22.0 (21.8-53.1) % Monocytes % 9.5 (5.3-12.2) % Eosinophils % 1.1 (0.8-7.0) % Basophils % 0.2 (0.2-1.2) % Absolute Granulocytes 6.35 H (1.78-5.38) x10^3/uL Basophils # 0.02 (0.01-0.08) x10^3/uL ESR 18 H (0-15) mm/hr Sodium 137 (135-145) mmol/L Potassium 3.3 L (3.5-5.1) mmol/L Chloride 99 (98-107) mmol/L Carbon Dioxide 30 (22-30) mmol/L Anion Gap 11.5 (5-15) MEQ/L BUN 36 H (9-20) mg/dL Creatinine 0.89 (0.66-1.25) mg/dL Estimated GFR 96.3 ML/MIN Glucose 85 (74-106) mg/dL POC Glucometer (74 to 106) mg/dL Calcium 8.0 L (8.4-10.2) mg/dL Magnesium (1.6-2.3) mg/dL Total Bilirubin 0.40 (0.2-1.3) mg/dL AST 28 (17-59) U/L ALT 17 (0-50) U/L Alkaline Phosphatase 114 (38-126) U/L Troponin I (0.000-0.033) ng/mL Serum Total Protein 6.1 L (6.3-8.2) g/dL Albumin 3.3 L (3.5-5.0) g/dL Vitamin B12 (239-931) pg/mL Influenza Type A Ag (NEGATIVE) Influenza Type B Ag (NEGATIVE) RSV (PCR) (NEGATIVE) SARS-CoV-2 (PCR) (NEGATIVE) Radiology Exams: Radiology Procedures Category Date Time Status ABDOMEN AND PELVIS W CONTRAST [CT] Urgent Exams 08/20/24 13:00 Completed CHEST 1 VIEW (PORTABLE) Stat Exams 08/19/24 23:20 Completed ECHO W/2D AND DOPPLER [US] Routine Exams 08/20/24 05:45 Taken GALLBLADDER [US] Urgent Exams 08/21/24 07:00 Ordered HEAD WITHOUT CONTRAST [CT] Stat Exams 08/19/24 22:50 Completed MRI BRAIN W & W/O CONTRAST [MRI] Routine Exams 08/21/24 07:00 Ordered MRI BRAIN W/O CONTRAST [MRI] Routine Exams 08/20/24 05:45 Completed Assessment/Plan (1) Gait abnormality Current Visit: Yes Status: Acute Assessment & Plan: -repeat MRI shows stable white matter changes, with some enhancing areas suggesting active demyelination, raising concern for MS, ADEM, or Lyme disease. Mild brain atrophy and a small old stroke were also noted -Awaiting neurology follow-up and possible transfer for further evaluation -UDS negative -PT/OT eval Code(s): R26.9 - UNSPECIFIED ABNORMALITIES OF GAIT AND MOBILITY (2) Abnormal finding on imaging Current Visit: Yes Status: Acute Assessment & Plan: -Repeat MRI shows re-identified stable white matter changes, with some enhancing areas suggesting active demyelination, raising concern for MS, ADEM, or Lyme disease. Mild brain atrophy and a small old stroke were also noted. Awaiting neurology follow-up and possible transfer for further evaluation -CT imaging incidentally identified a 6mm noncalcified lung nodule requiring follow-up per Fleischner guidelines, along with mild gallbladder distension and other chronic changes, including emphysema and arteriosclerosis -US GB negative for acute findings. Code(s): R93.89 - ABNORMAL FINDINGS ON DX IMAGING OF OT BODY STRUCTURES (3) Acute renal injury Current Visit: Yes Status: Acute Assessment & Plan: -CMP reviewed - creat WNL - CARMELO resolved -Monitor renal/lytes daily -Avoid nephrotoxic meds -IVF Code(s): N17.9 - ACUTE KIDNEY FAILURE, UNSPECIFIED (4) DM2 (diabetes mellitus, type 2) Current Visit: Yes Status: Acute Assessment & Plan: -ADA diet -A1c pending -SSI (5) Dehydration Current Visit: Yes Status: Acute Assessment & Plan: -resolved Code(s): E86.0 - DEHYDRATION (6) Falls Current Visit: Yes Status: Acute Assessment & Plan: -see plan for gait changes Code(s): R29.6 - REPEATED FALLS (7) Hypertension Current Visit: Yes Status: Acute Assessment & Plan: -Stable continue home meds Code(s): I10 - ESSENTIAL (PRIMARY) HYPERTENSION (8) On deep vein thrombosis (DVT) prophylaxis Current Visit: Yes Status: Acute Assessment & Plan: -SCDs Code(s): Z79.899 - OTHER DETENTION (CURRENT) DRUG THERAPY (9) Unintentional weight loss Current Visit: Yes Status: Acute Assessment & Plan: -PCP reported unintentional weight loss over the past 2-3 weeks of 20lbs -CT imaging of abdomen and pelvis incidentally identified a 6mm noncalcified lung nodule requiring follow-up per Fleischner guidelines, along with mild gallbladder distension and other chronic changes, including emphysema and arteriosclerosis -GB US negative for acute findings -Patient complains of loss of taste following URI Code(s): R63.4 - ABNORMAL WEIGHT LOSS (10) Hypokalemia Current Visit: Yes Status: Acute Assessment & Plan: -Potassium level reviewed - 40meq potassium chloride given - repeat potassium level 2 hours post administration Code(s): E87.6 - HYPOKALEMIA (11) Complaint of paresthesia Current Visit: Yes Status: Acute Assessment & Plan: -right 1-3 fingers/ some facial numbness around the mouth -MRI as stated above -awaiting neurology recommendations -B12 level reviewed at 916 Code(s): R20.2 - PARESTHESIA OF SKIN
--- NOTE | 2024-08-21 09:40 | XRAY ---
Indication: Abnormal CT abdomen/pelvis demonstrating distended gallbladder. Two-dimensional gallbladder sonogram performed. Comparison: None Visualized gallbladder normally distended with minimal sludge in dependent portion. No gallstones, abnormal wall thickening, or pericholecystic fluid. Common bile duct measures 2.2 mm. No intrahepatic biliary distention. Remaining visualized liver, pancreas, and right kidney are sonographically unremarkable. Right kidney measures 9.9 x 6.4 x 4.7 cm. Impression: Gallbladder sludge. Negative for cholelithiasis, cholecystitis, or abnormal biliary distention.
--- NOTE | 2024-08-21 14:28 | XRAY ---
Indication: Abnormal MRI brain without contrast exam one day earlier. Repeat per neurologist. Sagittal, coronal, and axial MRI brain performed using pre-and post T1, T2, FLAIR, diffusion, and ADC sequences. 15 cc Dotarem contrast used. Grossly stable age-appropriate global atrophy and tiny remote lacunar infarct brainstem. T2 FLAIR sequences demonstrates grossly stable minimal periventricular hyperintensities bilaterally and splenium of corpus callosum again favoring demyelinating process/multiple sclerosis. A few bilateral mid periventricular hyperintensities demonstrates enhancement, largest focus on the right measuring 7 mm. No other focal intra or extra-axial enhancement. Fourth ventricle midline without hydrocephalus. Normal flow void signal within the major intracerebral circulation. Normal appearing craniocervical junction and sella turcica. Impression: 1. Grossly stable hyperintensities in periventricular white matter bilaterally and splenium of corpus callosum. Again rule out multiple sclerosis. A few periventricular hyperintensities enhance suggesting active demyelination. Acute disseminated encephalomyelitis and Lyme disease is again offered for clinical consideration. 2. Again global atrophy and tiny remote lacunar infarct.
[2024-08-21] MEDS: Klor Con PO ONE (18:10)
--- NOTE | 2024-08-21 19:47 | PCM.NOTE ---
Date and Time: 08/21/241936 Subjective Assessment: Received emergent consult request from facility to review MRI images with patient. Patient feels that he is back to baseline. He is requesting to go outside now and is requesting to go home tonight. I reviewed his MRI brain WO from 08/20/2024. There are multiple foci of hyperintensity in the bilateral subcortex and in the splenium of the corpus callosum. This was followed up with MRI brain WWO today which shows that some of these subcortical lesions enhance. Patient denies any history of autoimmune/inflammatory disease. No family history of such either. He denies family history of malignancy. Denies any family history of AMBULATORY CARE COORDINATOR disease that he knows of. Objective Exam - Vital Signs Vital Signs: Vital Signs - 24 hr 08/20/24 08/21/24 08/21/24 20:00 00:00 04:00 Temperature 97.6 F 96.2 F 97.8 F Pulse Rate 60 58 L 60 Respiratory 18 18 18 Rate Blood Pressure 114/53 119/59 122/62 [left] O2 Sat by Pulse 98 98 98 Oximetry 08/21/24 08/21/24 08/21/24 07:31 11:55 16:00 Temperature 98.0 F 98.2 F 98.3 F Pulse Rate 51 L 54 L 48 L Respiratory 16 16 18 Rate Blood Pressure 116/59 131/69 127/67 [left] O2 Sat by Pulse 97 93 L 97 Oximetry - Physical Exam Tele-Neuro Physical Exam (Narrative): Exam No distress Awake, alert, oriented Fund of knowledge normal Speech is clear Language is normal Moves all extremities Able to sit up on side of bed unassisted Limited tele exam Objective Data - Labs Lab/Micro Results: Lab Results-Last 24 Hours 08/20/24 08/20/24 08/21/24 Range/Units 07:30 07:30 00:31 WBC (4.23-9.07) x10^3/uL RBC (4.63-6.08) x10^6/uL Hgb (13.7-17.5) g/dL Hct (40.1-51.0) % MCV (79.0-92.2) fL MCH (25.7-32.2) pg MCHC (32.3-36.5) g/dL RDW (11.6-14.4) % Plt Count (163-337) x10^3/uL MPV (9.4-12.4) fL Gran % (34.0-67.9) % Immature Gran % (Auto) (0.001-0.429) % Nucleat RBC Rel Count (0.00-0.2) % Eos # (Auto) (0.04-0.54) x10^3/uL Immature Gran # (Auto) (0.001-0.031) x10^3u/L Absolute Lymphs (auto) (1.32-3.57) x10^3/uL Absolute Monos (auto) (0.30-0.82) x10^3/uL Absolute Nucleated RBC (0.00-0.012) x10^3u/L Lymphocytes % (21.8-53.1) % Monocytes % (5.3-12.2) % Eosinophils % (0.8-7.0) % Basophils % (0.2-1.2) % Absolute Granulocytes (1.78-5.38) x10^3/uL Basophils # (0.01-0.08) x10^3/uL ESR (0-15) mm/hr Sodium 138 (135-145) mmol/L Potassium 3.7 (3.5-5.1) mmol/L Chloride 97 L (98-107) mmol/L Carbon Dioxide 28 (22-30) mmol/L Anion Gap 16.7 H (5-15) MEQ/L BUN 67 H (9-20) mg/dL Creatinine 1.05 (0.66-1.25) mg/dL Estimated GFR 79.8 ML/MIN Glucose 97 (74-106) mg/dL POC Glucometer 112 H (74 to 106) mg/dL Hemoglobin A1c (4.5-6.0) % Calcium 8.3 L (8.4-10.2) mg/dL Magnesium 3.1 H (1.6-2.3) mg/dL Total Bilirubin (0.2-1.3) mg/dL AST (17-59) U/L ALT (0-50) U/L Alkaline Phosphatase (38-126) U/L Serum Total Protein (6.3-8.2) g/dL Albumin (3.5-5.0) g/dL Vitamin B12 916 (239-931) pg/mL 08/21/24 08/21/24 08/21/24 Range/Units 04:25 04:25 04:30 WBC 9.5 H (4.23-9.07) x10^3/uL RBC 4.84 (4.63-6.08) x10^6/uL Hgb 14.0 (13.7-17.5) g/dL Hct 43.3 (40.1-51.0) % MCV 89.5 (79.0-92.2) fL MCH 28.9 (25.7-32.2) pg MCHC 32.3 (32.3-36.5) g/dL RDW 12.6 (11.6-14.4) % Plt Count 223 (163-337) x10^3/uL MPV 11.0 (9.4-12.4) fL Gran % 66.9 (34.0-67.9) % Immature Gran % (Auto) 0.3 (0.001-0.429) % Nucleat RBC Rel Count 0.0 (0.00-0.2) % Eos # (Auto) 0.10 (0.04-0.54) x10^3/uL Immature Gran # (Auto) 0.03 (0.001-0.031) x10^3u/L Absolute Lymphs (auto) 2.09 (1.32-3.57) x10^3/uL Absolute Monos (auto) 0.90 H (0.30-0.82) x10^3/uL Absolute Nucleated RBC 0.00 (0.00-0.012) x10^3u/L Lymphocytes % 22.0 (21.8-53.1) % Monocytes % 9.5 (5.3-12.2) % Eosinophils % 1.1 (0.8-7.0) % Basophils % 0.2 (0.2-1.2) % Absolute Granulocytes 6.35 H (1.78-5.38) x10^3/uL Basophils # 0.02 (0.01-0.08) x10^3/uL ESR 18 H (0-15) mm/hr Sodium 137 (135-145) mmol/L Potassium 3.3 L (3.5-5.1) mmol/L Chloride 99 (98-107) mmol/L Carbon Dioxide 30 (22-30) mmol/L Anion Gap 11.5 (5-15) MEQ/L BUN 36 H (9-20) mg/dL Creatinine 0.89 (0.66-1.25) mg/dL Estimated GFR 96.3 ML/MIN Glucose 85 (74-106) mg/dL POC Glucometer (74 to 106) mg/dL Hemoglobin A1c 9.60 H (4.5-6.0) % Calcium 8.0 L (8.4-10.2) mg/dL Magnesium (1.6-2.3) mg/dL Total Bilirubin 0.40 (0.2-1.3) mg/dL AST 28 (17-59) U/L ALT 17 (0-50) U/L Alkaline Phosphatase 114 (38-126) U/L Serum Total Protein 6.1 L (6.3-8.2) g/dL Albumin 3.3 L (3.5-5.0) g/dL Vitamin B12 (239-931) pg/mL 08/21/24 08/21/24 08/21/24 Range/Units 08:23 11:33 16:20 WBC (4.23-9.07) x10^3/uL RBC (4.63-6.08) x10^6/uL Hgb (13.7-17.5) g/dL Hct (40.1-51.0) % MCV (79.0-92.2) fL MCH (25.7-32.2) pg MCHC (32.3-36.5) g/dL RDW (11.6-14.4) % Plt Count (163-337) x10^3/uL MPV (9.4-12.4) fL Gran % (34.0-67.9) % Immature Gran % (Auto) (0.001-0.429) % Nucleat RBC Rel Count (0.00-0.2) % Eos # (Auto) (0.04-0.54) x10^3/uL Immature Gran # (Auto) (0.001-0.031) x10^3u/L Absolute Lymphs (auto) (1.32-3.57) x10^3/uL Absolute Monos (auto) (0.30-0.82) x10^3/uL Absolute Nucleated RBC (0.00-0.012) x10^3u/L Lymphocytes % (21.8-53.1) % Monocytes % (5.3-12.2) % Eosinophils % (0.8-7.0) % Basophils % (0.2-1.2) % Absolute Granulocytes (1.78-5.38) x10^3/uL Basophils # (0.01-0.08) x10^3/uL ESR (0-15) mm/hr Sodium (135-145) mmol/L Potassium (3.5-5.1) mmol/L Chloride (98-107) mmol/L Carbon Dioxide (22-30) mmol/L Anion Gap (5-15) MEQ/L BUN (9-20) mg/dL Creatinine (0.66-1.25) mg/dL Estimated GFR ML/MIN Glucose (74-106) mg/dL POC Glucometer 75 77 96 (74 to 106) mg/dL Hemoglobin A1c (4.5-6.0) % Calcium (8.4-10.2) mg/dL Magnesium (1.6-2.3) mg/dL Total Bilirubin (0.2-1.3) mg/dL AST (17-59) U/L ALT (0-50) U/L Alkaline Phosphatase (38-126) U/L Serum Total Protein (6.3-8.2) g/dL Albumin (3.5-5.0) g/dL Vitamin B12 (239-931) pg/mL Microbiology 08/20/24 02:19 Urine Culture - Final Urine, Void NO GROWTH Accuchecks Date 08/21/24 Date 08/21/24 Time 08:25 Time 00:05 - Radiology Orders Radiology Orders: Radiology Procedures Category Date Time Status ABDOMEN AND PELVIS W CONTRAST [CT] Urgent Exams 08/20/24 13:00 Completed CHEST 1 VIEW (PORTABLE) Stat Exams 08/19/24 23:20 Completed ECHO W/2D AND DOPPLER [US] Routine Exams 08/20/24 05:45 Taken GALLBLADDER [US] Urgent Exams 08/21/24 07:00 Completed HEAD WITHOUT CONTRAST [CT] Stat Exams 08/19/24 22:50 Completed MRI BRAIN W & W/O CONTRAST [MRI] Routine Exams 08/21/24 07:00 Completed MRI BRAIN W/O CONTRAST [MRI] Routine Exams 08/20/24 05:45 Completed Assessment & Plan - Encounter Encounter: Unclear etiology of MRI findings. Differential considerations include demyelinating disease, AMBULATORY CARE COORDINATOR infection (Lyme, viral etiologies), AMBULATORY CARE COORDINATOR neoplasm, less likely infarcts of varying ages. I am most concerned for demyelinating disease but additional workup is needed. Reviewed initial neurology consultation note. LP was recommended but this was not completed. Per discussion with Dr. Chan, this may be difficult to obtain in a timely fashion. As such, I do recommend transferring to a center that can perform an LP tomorrow and ideally seek in person neurology evaluation. As patient is asymptomatic and I am not entirely certain that his enhancement represents demyelinating disease, we will hold off on steroid burst for now pending CSF results (cell counts, glucose, protein, ME panel, MS profile (OCB's), cytology, flow cytometry). Patient would also benefit from spine imaging to assess for any other cord lesions that could support dissemination in time/space. Above recommendations discussed with Dr. Chan. "The entirety of this encounter was performed via Telemedicine using audio and visual "
[2024-08-22 04:41] LABS: Absolute Neutrophil Ct (ANC) 5.63 x10^3/uL (1.78-5.38); BASOPHIL % 0.4 % (0.2-1.2); Basophil (Absolute #) 0.03 x10^3/uL (0.01-0.08); Eosinophil (Absolute #) 0.08 x10^3/uL (0.04-0.54); Hematocrit 41.8 % (40.1-51.0); Hemoglobin 13.7 g/dL (13.7-17.5); IMMATURE GRAN # 0.03 x10^3u/L (0.001-0.031); IMMATURE GRAN % 0.4 % (0.001-0.429); Lymphocyte (Absolute #) 1.79 x10^3/uL (1.32-3.57); Lymphocytes % 21.3 % (21.8-53.1); Mean Cell Volume 89.1 fL (79.0-92.2); Mean Corpuscular Hemoglobin 29.2 pg (25.7-32.2); Mean Corpuscular Hgb Concent. 32.8 g/dL (32.3-36.5); Mean Platelet Volume 11.1 fL (9.4-12.4); Monocyte (Absolute #) 0.83 x10^3/uL (0.30-0.82); Monocytes % 9.9 % (5.3-12.2); Platelet Count 213 x10^3/uL (163-337); Red Blood Count 4.69 x10^6/uL (4.63-6.08); Red Cell Distribution Width 12.7 % (11.6-14.4); White Blood Count 8.4 x10^3/uL (4.23-9.07)
[2024-08-22 04:52] LABS: ALBUMIN 3.3 g/dL (3.5-5.0); ANION GAP 11.5 MEQ/L (5-15); BILIRUBIN,TOTAL 0.4 mg/dL (0.2-1.3); Calcium 8.1 mg/dL (8.4-10.2); Creatinine 1 0.72 mg/dL (0.66-1.25); EST GLOMERULAR FILTRATION RATE 102.7 ML/MIN; Potassium 3.6 mmol/L (3.5-5.1); Total Protein 6.1 g/dL (6.3-8.2)
--- NOTE | 2024-08-22 05:23 | PCM.NOTE ---
Date and Time: 08/22/24 0516 Subjective Assessment: MR Ashraf is a 63-year-old male with DM2 and HTN presented with recurrent falls over the past few days, without reported injury but with a noticeable gait abnormality. Neurology was consulted, and MRI findings revealed periventricular white matter hyperintensities concerning for demyelinating disease, including multiple sclerosis, acute disseminated encephalomyelitis (ADEM), or Lyme disease. Additionally, remote lacunar infarcts were noted, raising concerns for cerebrovascular disease. The patient also reported significant unintentional weight loss (20 lbs in 2-3 weeks), persistent taste loss post-pneumonia, and numbness in his right-hand fingers and left forearm. Further evaluation showed acute kidney injury (CARMELO) and hypermagnesemia, prompting fluid resuscitation and repeat laboratory monitoring. BP medications were temporarily held due to CARMELO. CT imaging incidentally identified a 6mm noncalcified lung nodule requiring follow-up per Fleischner guidelines, along with mild gallbladder distension and other chronic changes, including emphysema and arteriosclerosis.He was initiated on aspirin and a statin for suspected vascular contributions to his symptoms, Lovenox for DVT prophylaxis, and sliding scale insulin for diabetes management. Neurology recommended a repeat MRI with findings unchanged from the previous one performed on admission. Neurology recommends transfer to a higher-level center for lumbar puncture and specialized evaluation. Given the patients asymptomatic status and uncertainty regarding the enhancements etiology, steroids will be deferred pending CSF analysis, including cell counts, glucose, protein, ME panel, MS profile (OCBs), cytology, and flow cytometry. Spine imaging is warranted to assess for additional cord lesions indicative of dissemination in time and space, with further input from on-site neurology. PT/OT was consulted for mobility assessment and fall prevention strategies while IP. Transfer initiated. 08/21/24: Met with patient bedside. Endorses frustration with not being able to smoke. Counseled patient on the importance of smoking cessation. Patient is not ready to quit. No changes in symptoms continues with persistent taste loss post- pneumonia, and numbness in his right-hand fingers and left forearm.. GB US with no acute findings. MRI findings on repeat with re-identified grossly stable hyperintensities in periventricular white matter bilaterally and splenium of corpus callosum. Again rule out multiple sclerosis. A few periventricular hyperintensities enhance suggesting active demyelination. Acute disseminated encephalomyelitis and Lyme disease is again offered for clinical consideration. Again global atrophy and tiny remote lacunar infarct. Awaiting neuro follow up and re-evaluation with possible transfer. 08/20/24: Neurology documentation reviewed. Neurology recommends transfer to a higher- level center for lumbar puncture and specialized evaluation. Given the patients asymptomatic status and uncertainty regarding the enhancements etiology, steroids will be deferred pending CSF analysis, including cell counts, glucose, protein, ME panel, MS profile (OCBs), cytology, and flow cytometry. Spine imaging is warranted to assess for additional cord lesions indicative of dissemination in time and space, with further input from on-site neurology. Objective Data Vital Signs: Vital Signs - 24 hr Temp Pulse Resp BP Pulse Ox 08/22/24 04:00 96.9 F 64 17 155/67 98 08/21/24 23:38 16 08/21/24 20:00 96.9 F 64 17 145/76 92 L 08/21/24 16:00 98.3 F 48 L 18 127/67 97 08/21/24 11:55 98.2 F 54 L 16 131/69 93 L 08/21/24 07:31 98.0 F 51 L 16 116/59 97 Pain Assessment - Last Documented Pain Intensity 0 Intake and Output: Intake & Output 08/19/24 08/20/24 08/21/24 08/22/24 11:59 11:59 11:59 11:59 Intake Total 240 3426 960 Output Total 400 Balance 240 3026 960 Weight 71 kg Lab Results: Lab Results-Last 24 Hours 08/20/24 08/21/24 08/21/24 Range/Units 07:30 04:30 08:23 WBC (4.23-9.07) x10^3/uL RBC (4.63-6.08) x10^6/uL Hgb (13.7-17.5) g/dL Hct (40.1-51.0) % MCV (79.0-92.2) fL MCH (25.7-32.2) pg MCHC (32.3-36.5) g/dL RDW (11.6-14.4) % Plt Count (163-337) x10^3/uL MPV (9.4-12.4) fL Gran % (34.0-67.9) % Immature Gran % (Auto) (0.001-0.429) % Nucleat RBC Rel Count (0.00-0.2) % Eos # (Auto) (0.04-0.54) x10^3/uL Immature Gran # (Auto) (0.001-0.031) x10^3u/L Absolute Lymphs (auto) (1.32-3.57) x10^3/uL Absolute Monos (auto) (0.30-0.82) x10^3/uL Absolute Nucleated RBC (0.00-0.012) x10^3u/L Lymphocytes % (21.8-53.1) % Monocytes % (5.3-12.2) % Eosinophils % (0.8-7.0) % Basophils % (0.2-1.2) % Absolute Granulocytes (1.78-5.38) x10^3/uL Basophils # (0.01-0.08) x10^3/uL Sodium 138 (135-145) mmol/L Potassium 3.7 (3.5-5.1) mmol/L Chloride 97 L (98-107) mmol/L Carbon Dioxide 28 (22-30) mmol/L Anion Gap 16.7 H (5-15) MEQ/L BUN 67 H (9-20) mg/dL Creatinine 1.05 (0.66-1.25) mg/dL Estimated GFR 79.8 ML/MIN Glucose 97 (74-106) mg/dL POC Glucometer 75 (74 to 106) mg/dL Hemoglobin A1c 9.60 H (4.5-6.0) % Calcium 8.3 L (8.4-10.2) mg/dL Magnesium 3.1 H (1.6-2.3) mg/dL Total Bilirubin (0.2-1.3) mg/dL AST (17-59) U/L ALT (0-50) U/L Alkaline Phosphatase (38-126) U/L Serum Total Protein (6.3-8.2) g/dL Albumin (3.5-5.0) g/dL 08/21/24 08/21/24 08/21/24 Range/Units 11:33 16:20 20:25 WBC (4.23-9.07) x10^3/uL RBC (4.63-6.08) x10^6/uL Hgb (13.7-17.5) g/dL Hct (40.1-51.0) % MCV (79.0-92.2) fL MCH (25.7-32.2) pg MCHC (32.3-36.5) g/dL RDW (11.6-14.4) % Plt Count (163-337) x10^3/uL MPV (9.4-12.4) fL Gran % (34.0-67.9) % Immature Gran % (Auto) (0.001-0.429) % Nucleat RBC Rel Count (0.00-0.2) % Eos # (Auto) (0.04-0.54) x10^3/uL Immature Gran # (Auto) (0.001-0.031) x10^3u/L Absolute Lymphs (auto) (1.32-3.57) x10^3/uL Absolute Monos (auto) (0.30-0.82) x10^3/uL Absolute Nucleated RBC (0.00-0.012) x10^3u/L Lymphocytes % (21.8-53.1) % Monocytes % (5.3-12.2) % Eosinophils % (0.8-7.0) % Basophils % (0.2-1.2) % Absolute Granulocytes (1.78-5.38) x10^3/uL Basophils # (0.01-0.08) x10^3/uL Sodium (135-145) mmol/L Potassium 3.5 (3.5-5.1) mmol/L Chloride (98-107) mmol/L Carbon Dioxide (22-30) mmol/L Anion Gap (5-15) MEQ/L BUN (9-20) mg/dL Creatinine (0.66-1.25) mg/dL Estimated GFR ML/MIN Glucose (74-106) mg/dL POC Glucometer 77 96 (74 to 106) mg/dL Hemoglobin A1c (4.5-6.0) % Calcium (8.4-10.2) mg/dL Magnesium (1.6-2.3) mg/dL Total Bilirubin (0.2-1.3) mg/dL AST (17-59) U/L ALT (0-50) U/L Alkaline Phosphatase (38-126) U/L Serum Total Protein (6.3-8.2) g/dL Albumin (3.5-5.0) g/dL 08/21/24 08/22/24 08/22/24 Range/Units 20:52 04:26 04:26 WBC 8.4 (4.23-9.07) x10^3/uL RBC 4.69 (4.63-6.08) x10^6/uL Hgb 13.7 (13.7-17.5) g/dL Hct 41.8 (40.1-51.0) % MCV 89.1 (79.0-92.2) fL MCH 29.2 (25.7-32.2) pg MCHC 32.8 (32.3-36.5) g/dL RDW 12.7 (11.6-14.4) % Plt Count 213 (163-337) x10^3/uL MPV 11.1 (9.4-12.4) fL Gran % 67.0 (34.0-67.9) % Immature Gran % (Auto) 0.4 (0.001-0.429) % Nucleat RBC Rel Count 0.0 (0.00-0.2) % Eos # (Auto) 0.08 (0.04-0.54) x10^3/uL Immature Gran # (Auto) 0.03 (0.001-0.031) x10^3u/L Absolute Lymphs (auto) 1.79 (1.32-3.57) x10^3/uL Absolute Monos (auto) 0.83 H (0.30-0.82) x10^3/uL Absolute Nucleated RBC 0.00 (0.00-0.012) x10^3u/L Lymphocytes % 21.3 L (21.8-53.1) % Monocytes % 9.9 (5.3-12.2) % Eosinophils % 1.0 (0.8-7.0) % Basophils % 0.4 (0.2-1.2) % Absolute Granulocytes 5.63 H (1.78-5.38) x10^3/uL Basophils # 0.03 (0.01-0.08) x10^3/uL Sodium 138 (135-145) mmol/L Potassium 3.6 (3.5-5.1) mmol/L Chloride 101 (98-107) mmol/L Carbon Dioxide 29 (22-30) mmol/L Anion Gap 11.5 (5-15) MEQ/L BUN 22 H (9-20) mg/dL Creatinine 0.72 (0.66-1.25) mg/dL Estimated GFR 102.7 ML/MIN Glucose 133 H (74-106) mg/dL POC Glucometer 158 H (74 to 106) mg/dL Hemoglobin A1c (4.5-6.0) % Calcium 8.1 L (8.4-10.2) mg/dL Magnesium (1.6-2.3) mg/dL Total Bilirubin 0.40 (0.2-1.3) mg/dL AST 26 (17-59) U/L ALT 19 (0-50) U/L Alkaline Phosphatase 116 (38-126) U/L Serum Total Protein 6.1 L (6.3-8.2) g/dL Albumin 3.3 L (3.5-5.0) g/dL Radiology Exams: Radiology Procedures Category Date Time Status ABDOMEN AND PELVIS W CONTRAST [CT] Urgent Exams 08/20/24 13:00 Completed ECHO W/2D AND DOPPLER [US] Routine Exams 08/20/24 05:45 Taken GALLBLADDER [US] Urgent Exams 08/21/24 07:00 Completed MRI BRAIN W & W/O CONTRAST [MRI] Routine Exams 08/21/24 07:00 Completed MRI BRAIN W/O CONTRAST [MRI] Routine Exams 08/20/24 05:45 Completed Multi-Disciplinary Progress Notes: Multi-Disciplinary Progress Notes 08/21/24 23:34 Radiology Note by DIPTI SOMMERS [facility] 08/21/2024 1. Normal chamber sizes. 2. Mild concentric left ventricular hypertrophy. 3. Normal left ventricular systolic function without focal wall abnormalities. Estimated EF 65%. 4. Mild diastolic dysfunction. 5. Normal right ventricular systolic function. 6. Mild aortic sclerosis without stenosis. Valves are otherwise structurally normal without significant valvular regurgitation. No obvious vegetations. 7. Unable to estimate PA systolic pressure. 8. Normal central venous pressure (estimated right atrial pressure 3 mmHg). 9. No pericardial effusion. 10. Impression: No obvious cardiac source of emboli. Dipti Sommers MD [facility] Initialized on 08/21/24 23:34 - END OF NOTE 08/21/24 10:30 (created 08/21/24 13:11) Case Management Note by Zeynep Julien S/W PATIENT- HE PLANS TO RETURN HOME TO HIS PLF AT TIME OF DC. HE WAS OFFERED HHC BUT DECLINES. HE IS AGREEABLE TO HAVE ROLLATOR ORDERED. THIS WAS ORDERED THRU [facility] USING [facility]- THIS WILL BE DELIVERED TO BEDSIDE PRIOR TO DC HOME. HE DENIES ANY OTHER NEW NEEDS. HE REPORTS HE CAN GET HIS MEDICATIONS WITHOUT TROUBLE Initialized on 08/21/24 13:11 - END OF NOTE Assessment/Plan (1) Gait abnormality Current Visit: Yes Status: Acute Assessment & Plan: -repeat MRI shows stable white matter changes, with some enhancing areas suggesting active demyelination, raising concern for MS, ADEM, or Lyme disease. Mild brain atrophy and a small old stroke were also noted -Awaiting neurology follow-up and possible transfer for further evaluation -UDS negative -PT/OT eval Code(s): R26.9 - UNSPECIFIED ABNORMALITIES OF GAIT AND MOBILITY (2) Abnormal finding on imaging Current Visit: Yes Status: Acute Assessment & Plan: -Repeat MRI shows re-identified stable white matter changes, with some enhancing areas suggesting active demyelination, raising concern for MS, ADEM, or Lyme disease. Mild brain atrophy and a small old stroke were also noted. Awaiting neurology follow-up and possible transfer for further evaluation -CT imaging incidentally identified a 6mm noncalcified lung nodule requiring follow-up per Fleischner guidelines, along with mild gallbladder distension and other chronic changes, including emphysema and arteriosclerosis -US GB negative for acute findings. 08/20: -Neurology documenation reviewed - agree with plan for transfer to higher level of care for lumbar puncture and comprehensive evaluation, given diagnostic uncertainty. With the patient remaining asymptomatic and the significance of the enhancement unclear, empiric steroid treatment is deferred pending CSF analysis, including inflammatory, infectious, and neoplastic markers. Spine imaging is recommended to assess for additional lesions that may establish dissemination in time and space, with further guidance from on-site neurology. Code(s): R93.89 - ABNORMAL FINDINGS ON DX IMAGING OF OTH BODY STRUCTURES (3) Acute renal injury Current Visit: Yes Status: Acute Assessment & Plan: -CMP reviewed - creat WNL - CARMELO resolved -Monitor renal/lytes daily -Avoid nephrotoxic meds -IVF 08/22: -Resolved Code(s): N17.9 - ACUTE KIDNEY FAILURE, UNSPECIFIED (4) DM2 (diabetes mellitus, type 2) Current Visit: Yes Status: Acute Assessment & Plan: -ADA diet -A1c pending -SSI (5) Dehydration Current Visit: Yes Status: Acute Assessment & Plan: -resolved Code(s): E86.0 - DEHYDRATION (6) Falls Current Visit: Yes Status: Acute Assessment & Plan: -see plan for gait changes Code(s): R29.6 - REPEATED FALLS (7) Hypertension Current Visit: Yes Status: Acute Assessment & Plan: -Stable continue home meds Code(s): I10 - ESSENTIAL (PRIMARY) HYPERTENSION (8) On deep vein thrombosis (DVT) prophylaxis Current Visit: Yes Status: Acute Assessment & Plan: -SCDs Code(s): Z79.899 - OTHER ADVANCED RESEARCH PROGRAMS DIRECTOR (CURRENT) DRUG THERAPY (9) Unintentional weight loss Current Visit: Yes Status: Acute Assessment & Plan: -PCP reported unintentional weight loss over the past 2-3 weeks of 20lbs -CT imaging of abdomen and pelvis incidentally identified a 6mm noncalcified lung nodule requiring follow-up per Fleischner guidelines, along with mild gallbladder distension and other chronic changes, including emphysema and arteriosclerosis -GB US negative for acute findings -Patient complains of loss of taste following URI Code(s): R63.4 - ABNORMAL WEIGHT LOSS (10) Hypokalemia Current Visit: Yes Status: Acute Assessment & Plan: -Potassium level reviewed - 40meq potassium chloride given - repeat potassium level 2 hours post administration 08/20: -Resolved Code(s): E87.6 - HYPOKALEMIA (11) Complaint of paresthesia Current Visit: Yes Status: Acute Assessment & Plan: -right 1-3 fingers/ some facial numbness around the mouth -MRI as stated above -awaiting neurology recommendations -B12 level reviewed at 916 08/20: -Neurology recs as stated above Code(s): R26.9 - UNSPECIFIED ABNORMALITIES OF GAIT AND MOBILITY (2) Abnormal finding on imaging Current Visit: Yes Status: Acute Code(s): R93.89 - ABNORMAL FINDINGS ON DX IMAGING OF OTH BODY STRUCTURES (3) Acute renal injury Current Visit: Yes Status: Acute Code(s): N17.9 - ACUTE KIDNEY FAILURE, UNSPECIFIED (4) DM2 (diabetes mellitus, type 2) Current Visit: Yes Status: Acute (5) Dehydration Current Visit: Yes Status: Acute Code(s): E86.0 - DEHYDRATION (6) Falls Current Visit: Yes Status: Acute Code(s): R29.6 - REPEATED FALLS (7) Hypertension Current Visit: Yes Status: Acute Code(s): I10 - ESSENTIAL (PRIMARY) HYPERTENSION (8) On deep vein thrombosis (DVT) prophylaxis Current Visit: Yes Status: Acute Code(s): Z79.899 - OTHER ADVANCED RESEARCH PROGRAMS DIRECTOR (CURRENT) DRUG THERAPY (9) Unintentional weight loss Current Visit: Yes Status: Acute Code(s): R63.4 - ABNORMAL WEIGHT LOSS (10) Hypokalemia Current Visit: Yes Status: Acute Code(s): E87.6 - HYPOKALEMIA (11) Complaint of paresthesia Current Visit: Yes Status: Acute Code(s): R20.2 - PARESTHESIA OF SKIN
[2024-08-22 07:48] VITALS: RESP 18
--- NOTE | 2024-08-22 09:26 | PCM.DS ---
Discharge Summary Date of Admission: 08/20/24 03:39 Date of Discharge: 08/22/24 Admitting Physician: JULIEN PEREZ MD Consults: Consults on Case 08/20/24 15:36 Consult Nephrology ROUTINE 08/20/24 17:00 Consult Neurology ROUTINE Primary Care Provider: ANNA MARIE IZAGUIRRE MD Allergies Allergies No Known Drug Allergies Allergy (Verified 08/19/24 23:24) Hospital Summary - Hospital Course Hospital Course: MR. Ashraf is a 63-year-old male with a history of type 2 diabetes mellitus and hypertension who presented with recurrent falls, gait abnormalities, and neurological symptoms including persistent taste loss and numbness in his right hand and left forearm. MRI findings revealed periventricular white matter hyperintensities, raising concern for a demyelinating disease such as multiple sclerosis (MS), acute disseminated encephalomyelitis (ADEM), or Lyme disease. Additionally, remote lacunar infarcts were noted, indicating a possible cerebrovascular contribution. The patient also had significant unintentional weight loss over the past 2-3 weeks and acute kidney injury. Patient had reported losing taste following an URI. CT of the abdomen was performed and unremarkable with the exception of GB wall thickening. This was further evaluated with a GB US with no acute findings. A noncalcified lung nodule was incidentally noted on CT imaging, requiring follow-up in 3 months. The patient was started on aspirin, a statin, Lovenox for DVT prophylaxis, and sliding scale insulin for diabetes management. Neurology recommended further evaluation with lumbar puncture and CSF analysis to rule out MS, ADEM, or Lyme disease, with steroids deferred until CSF results are available. The patient was accepted for transfer to a higher-level center for further specialized evaluation, including lumbar puncture and potential spine imaging. CARMELO has resolved. Physical therapy and occupational therapy were consulted for mobility assessment and fall prevention. The patient continues to struggle with smoking cessation but was counseled on its importance. Patient is agreeable to transfer and awaiting bed availability. Discharge Note I spent 35 minutes [id number] with the patient on the day of discharge performing discharge exam, discussing hospital stay and discharge instructions with patient and caregivers, preparation of discharge records, prescriptions & referral forms and addressing any questions/concerns the patient had as documented above. - Vitals & Intake/Output Vital Signs: Vital Signs Temperature 97.1 F 08/22/24 07:47 Pulse Rate 55 L 08/22/24 07:47 Respiratory Rate 18 08/22/24 07:47 Blood Pressure 99/50 08/22/24 07:47 O2 Sat by Pulse Oximetry 99 08/22/24 07:47 Intake & Output: Intake & Output 08/19/24 08/20/24 08/21/24 08/22/24 11:59 11:59 11:59 11:59 Intake Total 240 3426 1080 Output Total 400 Balance 240 3026 1080 Weight 71 kg - Lab Result Diagrams: 08/22/24 04:26 08/22/24 04:26 Lab Results-Last 24 Hrs: Lab Results-Last 24 Hours 08/21/24 08/21/24 08/21/24 Range/Units 04:30 11:33 16:20 WBC (4.23-9.07) x10^3/uL RBC (4.63-6.08) x10^6/uL Hgb (13.7-17.5) g/dL Hct (40.1-51.0) % MCV (79.0-92.2) fL MCH (25.7-32.2) pg MCHC (32.3-36.5) g/dL RDW (11.6-14.4) % Plt Count (163-337) x10^3/uL MPV (9.4-12.4) fL Gran % (34.0-67.9) % Immature Gran % (Auto) (0.001-0.429) % Nucleat RBC Rel Count (0.00-0.2) % Eos # (Auto) (0.04-0.54) x10^3/uL Immature Gran # (Auto) (0.001-0.031) x10^3u/L Absolute Lymphs (auto) (1.32-3.57) x10^3/uL Absolute Monos (auto) (0.30-0.82) x10^3/uL Absolute Nucleated RBC (0.00-0.012) x10^3u/L Lymphocytes % (21.8-53.1) % Monocytes % (5.3-12.2) % Eosinophils % (0.8-7.0) % Basophils % (0.2-1.2) % Absolute Granulocytes (1.78-5.38) x10^3/uL Basophils # (0.01-0.08) x10^3/uL Sodium (135-145) mmol/L Potassium (3.5-5.1) mmol/L Chloride (98-107) mmol/L Carbon Dioxide (22-30) mmol/L Anion Gap (5-15) MEQ/L BUN (9-20) mg/dL Creatinine (0.66-1.25) mg/dL Estimated GFR ML/MIN Glucose (74-106) mg/dL POC Glucometer 77 96 (74 to 106) mg/dL Hemoglobin A1c 9.60 H (4.5-6.0) % Calcium (8.4-10.2) mg/dL Total Bilirubin (0.2-1.3) mg/dL AST (17-59) U/L ALT (0-50) U/L Alkaline Phosphatase (38-126) U/L Serum Total Protein (6.3-8.2) g/dL Albumin (3.5-5.0) g/dL 08/21/24 08/21/24 08/22/24 Range/Units 20:25 20:52 04:26 WBC 8.4 (4.23-9.07) x10^3/uL RBC 4.69 (4.63-6.08) x10^6/uL Hgb 13.7 (13.7-17.5) g/dL Hct 41.8 (40.1-51.0) % MCV 89.1 (79.0-92.2) fL MCH 29.2 (25.7-32.2) pg MCHC 32.8 (32.3-36.5) g/dL RDW 12.7 (11.6-14.4) % Plt Count 213 (163-337) x10^3/uL MPV 11.1 (9.4-12.4) fL Gran % 67.0 (34.0-67.9) % Immature Gran % (Auto) 0.4 (0.001-0.429) % Nucleat RBC Rel Count 0.0 (0.00-0.2) % Eos # (Auto) 0.08 (0.04-0.54) x10^3/uL Immature Gran # (Auto) 0.03 (0.001-0.031) x10^3u/L Absolute Lymphs (auto) 1.79 (1.32-3.57) x10^3/uL Absolute Monos (auto) 0.83 H (0.30-0.82) x10^3/uL Absolute Nucleated RBC 0.00 (0.00-0.012) x10^3u/L Lymphocytes % 21.3 L (21.8-53.1) % Monocytes % 9.9 (5.3-12.2) % Eosinophils % 1.0 (0.8-7.0) % Basophils % 0.4 (0.2-1.2) % Absolute Granulocytes 5.63 H (1.78-5.38) x10^3/uL Basophils # 0.03 (0.01-0.08) x10^3/uL Sodium (135-145) mmol/L Potassium 3.5 (3.5-5.1) mmol/L Chloride (98-107) mmol/L Carbon Dioxide (22-30) mmol/L Anion Gap (5-15) MEQ/L BUN (9-20) mg/dL Creatinine (0.66-1.25) mg/dL Estimated GFR ML/MIN Glucose (74-106) mg/dL POC Glucometer 158 H (74 to 106) mg/dL Hemoglobin A1c (4.5-6.0) % Calcium (8.4-10.2) mg/dL Total Bilirubin (0.2-1.3) mg/dL AST (17-59) U/L ALT (0-50) U/L Alkaline Phosphatase (38-126) U/L Serum Total Protein (6.3-8.2) g/dL Albumin (3.5-5.0) g/dL 08/22/24 08/22/24 Range/Units 04:26 07:30 WBC (4.23-9.07) x10^3/uL RBC (4.63-6.08) x10^6/uL Hgb (13.7-17.5) g/dL Hct (40.1-51.0) % MCV (79.0-92.2) fL MCH (25.7-32.2) pg MCHC (32.3-36.5) g/dL RDW (11.6-14.4) % Plt Count (163-337) x10^3/uL MPV (9.4-12.4) fL Gran % (34.0-67.9) % Immature Gran % (Auto) (0.001-0.429) % Nucleat RBC Rel Count (0.00-0.2) % Eos # (Auto) (0.04-0.54) x10^3/uL Immature Gran # (Auto) (0.001-0.031) x10^3u/L Absolute Lymphs (auto) (1.32-3.57) x10^3/uL Absolute Monos (auto) (0.30-0.82) x10^3/uL Absolute Nucleated RBC (0.00-0.012) x10^3u/L Lymphocytes % (21.8-53.1) % Monocytes % (5.3-12.2) % Eosinophils % (0.8-7.0) % Basophils % (0.2-1.2) % Absolute Granulocytes (1.78-5.38) x10^3/uL Basophils # (0.01-0.08) x10^3/uL Sodium 138 (135-145) mmol/L Potassium 3.6 (3.5-5.1) mmol/L Chloride 101 (98-107) mmol/L Carbon Dioxide 29 (22-30) mmol/L Anion Gap 11.5 (5-15) MEQ/L BUN 22 H (9-20) mg/dL Creatinine 0.72 (0.66-1.25) mg/dL Estimated GFR 102.7 ML/MIN Glucose 133 H (74-106) mg/dL POC Glucometer 122 H (74 to 106) mg/dL Hemoglobin A1c (4.5-6.0) % Calcium 8.1 L (8.4-10.2) mg/dL Total Bilirubin 0.40 (0.2-1.3) mg/dL AST 26 (17-59) U/L ALT 19 (0-50) U/L Alkaline Phosphatase 116 (38-126) U/L Serum Total Protein 6.1 L (6.3-8.2) g/dL Albumin 3.3 L (3.5-5.0) g/dL Micro Results-Entire Visit: Microbiology 08/20/24 02:19 Urine Culture - Final Urine, Void NO GROWTH Accuchecks Date 08/22/24 Date 08/21/24 Time 08:25 - Radiology Exams Ordered Rad Exams-Entire Visit: Radiology Procedures Category Date Time Status ABDOMEN AND PELVIS W CONTRAST [CT] Urgent Exams 08/20/24 13:00 Completed GALLBLADDER [US] Urgent Exams 08/21/24 07:00 Completed MRI BRAIN W & W/O CONTRAST [MRI] Routine Exams 08/21/24 07:00 Completed - Procedures and Test Procedures and Tests throughout Hospitalization: Therapy Orders & Screens 08/20/24 10:00 OT Screen per Nursing Assess ONCE Comment: Protocol Order Physician Instructions: Greater than 3 points order OT Admission Screening Reason For Exam: Triggered on Admission Diagnosis: Confusion, ataxic gait Open Wound/Cellutlitis/Pressure Ulcers: No Acute Fx/ORIF/Change in wt bearing status: No Severe MUSCULOSKELETAL pain: No ADL Dysfunction: Yes Acute CVA w/Hemiparesis/Hemiplegia: No Decreased Functional Mobility/Strength: Yes Sprain/Strain: No Acute Post-op Mobility Dysfunction: No Total Points: 4 PT Screen per Nursing Assess ONCE Comment: Protocol Order Physician Instructions: Greater than 3 points order PT Admission Screenin Reason For Exam: Triggered on Admission Diagnosis: Confusion, ataxic gait Open Wound/Cellutlitis/Pressure Ulcers: No Acute Fx/ORIF/Change in wt bearing status: No Severe MUSCULOSKELETAL pain: No ADL Dysfunction: Yes Acute CVA w/Hemiparesis/Hemiplegia: No Decreased Functional Mobility/Strength: Yes Sprain/Strain: No Acute Post-op Mobility Dysfunction: No Total Points: 4 Smoking Cessation Education ONCE Comment: Diagnosis: Confusion, ataxic gait Smoking Status: Current every day smoker How long have you smoked: 50 YEARS Have you smoked in the past 12 months: Yes Approximately how many cigarettes per day: 10 Do you dip or chew tobacco: No ST Screen per Nursing Assess ONCE Comment: Protocol Order Physician Instructions: Greater than [address] Admission Screening Reason For Exam: Triggered on Admission Diagnosis: Confusion, ataxic gait CVA/Dysphagia/Aphasia: No Cognitive Deficits: No Dehydration/Nutrition Deficit: Yes Reflux: No Oral-Motor Difficulties: No Pneumonia: No Group Home Resident: No Total Points: 5 08/20/24 10:30 PT Eval & Treat (MD Order) ONCE Reason for Eval:: WEAKNESS, FREQUENT FALLS Diagnosis: Confusion, ataxic gait Discharge Exam General Appearance: no apparent distress Neurologic Exam: alert, oriented x 3, cooperative Eye Exam: PERRL Ears, Nose, Throat Exam: normal ENT inspection Neck Exam: normal inspection Respiratory Exam: normal breath sounds, lungs clear Cardiovascular Exam: regular rate/rhythm, normal heart sounds Gastrointestinal/Abdomen Exam: soft, normal bowel sounds Male Genitalia Exam: deferred Rectal Exam: deferred Back Exam: normal inspection Extremity Exam: parasthesia Skin Exam: normal color Final Diagnosis/Problem List - Final Discharge Diagnosis/Problem (1) Gait abnormality Current Visit: Yes Status: Acute Code(s): R26.9 - UNSPECIFIED ABNORMALITIES OF GAIT AND MOBILITY (2) Abnormal finding on imaging Current Visit: Yes Status: Acute Code(s): R93.89 - ABNORMAL FINDINGS ON DX IMAGING OF OTH BODY STRUCTURES (3) Acute renal injury Current Visit: Yes Status: Acute Code(s): N17.9 - ACUTE KIDNEY FAILURE, UNSPECIFIED (4) DM2 (diabetes mellitus, type 2) Current Visit: Yes Status: Acute (5) Dehydration Current Visit: Yes Status: Acute Code(s): E86.0 - DEHYDRATION (6) Falls Current Visit: Yes Status: Acute Code(s): R29.6 - REPEATED FALLS (7) Hypertension Current Visit: Yes Status: Acute Code(s): I10 - ESSENTIAL (PRIMARY) HYPERTENSION (8) On deep vein thrombosis (DVT) prophylaxis Current Visit: Yes Status: Acute Code(s): Z79.899 - OTHER SHELTER (CURRENT) DRUG THERAPY (9) Unintentional weight loss Current Visit: Yes Status: Acute Code(s): R63.4 - ABNORMAL WEIGHT LOSS (10) Hypokalemia Current Visit: Yes Status: Acute Code(s): E87.6 - HYPOKALEMIA (11) Complaint of paresthesia Current Visit: Yes Status: Acute Code(s): R20.2 - PARESTHESIA OF SKIN - Discharge Discharge Date: 08/22/24 Disposition: DC TO OTHER HOSP Condition: Stable Prescriptions: New Aspirin EC 81 mg [Ecotrin 81 mg] 81 mg PO QAM tablet Enoxaparin Sodium [Enoxaparin Sodium] 40 mg SQ DAILY Continue Atorvastatin Calcium 40 mg PO DAILY Dapagliflozin Propanediol [Farxiga] 10 mg PO DAILY Insulin Glargine,Hum.rec.anlog [Lantus] 25 units SQ DAILY Lisinopril/Hydrochlorothiazide [Zestoretic 20-25 mg Tablet] 1 tab PO DAILY Baclofen 10 mg [Lioresal 10 mg] 10 mg PO TID PRN PRN Reason: Muscle Spasms Discontinued Doxycycline Monohydrate 100 mg PO BID Follow up with: ANNA MARIE IZAGUIRRE MD [Primary Care Provider] - 08/27/24 10:20 am
[2024-08-22 19:39] VITALS: BP 129/60; PULSE 64; TEMP 96.9; O2SAT 97
== END 2024-08-22 21:06 ==
LOC: ED 22:49 → MED SURG 08-20 03:39
PROVIDERS: ADMIT Internal Medicine; ATTEND Internal Medicine
DX: R26.9 Unspecified abnormalities of gait and mobility (principal); R93.89 Abnormal findings on diagnostic imaging of other specified body structures; N17.9 Acute kidney failure, unspecified; E11.9 Type 2 diabetes mellitus without complications; E86.0 Dehydration; R29.6 Repeated falls; I10 Essential (primary) hypertension; R63.4 Abnormal weight loss; E87.6 Hypokalemia; R20.2 Paresthesia of skin; I25.2 Old myocardial infarction; E78.5 Hyperlipidemia, unspecified; F17.200 Nicotine dependence, unspecified, uncomplicated; Z86.718 Personal history of other venous thrombosis and embolism; Z79.899 Other long term (current) drug therapy
CPT/HCPCS: 0241U; 36415; 70450; 70551; 70553; 71045; 74177; 76705; 80048; 80053; 80307; 81001; 82140; 82607; 82947; 83036; 83605; 83735; 83880; 84132; 84443; 84484; 85025; 85027; 85652; 86140; 87086; 93005; 93041; 93306; 94760; 97161; 99285; Q3014; J1650; A9270-GY